=== PATIENT | female | born 1970 | race Caucasian/White ===

== ENCOUNTER 2016-10-12 09:02 | Inpatient (IN) | payer MEDICARE ==
[~2016-10-12] VITALS: Ht 167.6 cm; Wt 84.8 kg
[~2016-10-12 09:02] MED LIST: ALBU0.63 NEB; ALBU2.5V NEB; ALBU8.5H3 INH; AMBR10TA3 PO; BENZ100C4 PO; CEFD300C2 PO; CHOL400T2 PO; CLON0.5T PO; DOCU-30 PO; DOXY100T PO; DULO60CA7 PO; FERR325T20 PO; FLUT1DIS IH; FOLI-17 PO; FURO-93 PO; FURO40TA6 PO; GABA300C10 PO; GABA600T2 PO; HYDR10TA11 PO; LANS30CA PO; MORP1VIA2 IMPLANT; ONDA8TAB9 PO; PHEN60TA PO; PHEN64.8 PO; POTA10TA5 PO; POTA20TA91 PO; PRED10TA PO; Pain Pump IMPLANT; SENN1TAB7 PO; TADA20TA33 PO; TOPI200T25 PO
[2016-10-12] MEDS ORDERED: SODIUM CHLORIDE 0.9% 1,000ML IVBOLUS ONE ×2 (09:30→11:00)
[2016-10-12] MEDS ORDERED: VANCOMYCIN PER PHARMACY MC ONE (09:30)
[2016-10-12] MEDS ORDERED: methylPREDNISolone SOD SUCC 125 MG/2 ML IVPush ONE (09:30)
[2016-10-12] MEDS ORDERED: PIPERACILLIN/TAZO/PMX 3.375GM 50 ML IVPB ONE (09:30)
[2016-10-12] MEDS ORDERED: HYDROmorphone 1 MG/ML, 1ML ONE (09:39)
[2016-10-12] MEDS ORDERED: ONDANSETRON 2MG/ML, 2ML ONE (09:39)
[2016-10-12] MEDS ORDERED: HYDROmorphone 1 MG/ML, 1ML IVPush PRN (10:00)
[2016-10-12] MEDS ORDERED: VANCOMYCIN 1,400 MG in SODIUM CHLORIDE 0.9% 250 ML IV ONE (10:00)
[2016-10-12] MEDS ORDERED: ONDANSETRON 2MG/ML, 2ML IVPush ONE (10:00)
[2016-10-12] MEDS ORDERED: methylPREDNISolone SOD SUCC 125 MG/2 ML ONE (10:03)
[2016-10-12] MEDS ORDERED: PIPERACILLIN/TAZO/PMX 3.375GM 50 ML ONE (10:03)
[2016-10-12 10:13] LABS: ABG COLLECTION SITE RIGHT RADIAL; COLLATERAL CIRCULATION TESTING NORMAL
[2016-10-12 10:21] LABS: HEMOGLOBIN 14.2 g/dL (11.7-16.4)
[2016-10-12 10:26] LABS: ASPARTATE AMINO TRANSFERASE 78 U/L (15-37); BLOOD UREA NITROGEN 22 mg/dL (7-18)
[2016-10-12 10:31] LABS: IS PT STATUS REG ER OR PRE ER? YES
[2016-10-12 10:52] LABS: DIFF TOTAL CELLS COUNTED 100 CELL DIFF
[2016-10-12 10:53] LABS: VERIFY COUNTS? YES
[2016-10-12] MEDS ORDERED: LORazepam 2 MG/ML, 1ML IVPush ONE (11:00)
[2016-10-12] MEDS ORDERED: POTASSIUM CHLORIDE 40 MEQ in SODIUM CHLORIDE 0.9% 500 ML IV ONE (11:00)
[2016-10-12] MEDS ORDERED: POTASSIUM CHLORIDE 20 MEQ TAB.ER.PRT PO ONE (11:00)
[2016-10-12] MEDS ORDERED: LORazepam 2 MG/ML, 1ML ONE (11:34)
[2016-10-12] MEDS ORDERED: POLYETHYLENE GLYCOL 17 GM PACKET PO PRN (12:30)
[2016-10-12 12:49] VITALS: BP 111/65
[2016-10-12] MEDS: ENOXAPARIN 40 MG/0.4 ML SQ SCH (15:55)
[2016-10-12] MEDS ORDERED: VANCOMYCIN PER PHARMACY MC PRN (17:30)
[2016-10-12] MEDS ORDERED: PHARMACOKINETIC CONSULTATION MC ONE (18:00)
[2016-10-12] MEDS ORDERED: PHARMACOKINETIC MONITORING MC PRN (18:00)
[2016-10-12] MEDS: VANCOMYCIN 1,600 MG in SODIUM CHLORIDE 0.9% 250 ML IV SCH (18:03)
[2016-10-12] MEDS: PIPERACILLIN/TAZO/PMX 2.25GM 50 ML IV SCH (18:03)
[2016-10-12] MEDS: POTASSIUM CHLORIDE 20 MEQ TAB.ER.PRT PO SCH (18:03)
[2016-10-12] MEDS: MORPHINE SULFATE 4 MG/ML, 1ML IVPush PRN (19:09)
[2016-10-12] MEDS: ALBUTEROL SULFATE 2.5 MG/3 ML NPPB PRN (19:35)
[2016-10-12] MEDS: ONDANSETRON 2MG/ML, 2ML IVP PRN (20:34)
[2016-10-12] MEDS ORDERED: PHENOBARBITAL HOMEMEDPO SCH (21:00)
[2016-10-12] MEDS: DULOXETINE 30 MG CAPSULE.DR PO SCH (21:03)
[2016-10-12] MEDS: FUROSEMIDE 40 MG TABLET PO SCH (21:03)
[2016-10-12] MEDS: GABAPENTIN 400 MG CAPSULE PO SCH (21:04)
[2016-10-12] MEDS: TOPIRAMATE 100 MG TABLET PO SCH (21:04)
[2016-10-12] MEDS: SODIUM CHLORIDE FLUSH 10ML SYR IVF SCH (21:07)
[2016-10-12] MEDS: PHENOBARBITAL 30 MG TABLET PO SCH (21:40)
[2016-10-12] MEDS: PHENOBARBITAL 100 MG TABLET PO SCH (21:40)
[2016-10-13] MEDS: PIPERACILLIN/TAZO/PMX 2.25GM 50 ML IV SCH ×3 (01:39→18:02)
[2016-10-13] MEDS: OXYcodone IR 5MG TABLET PO PRN ×3 (02:13→16:48)
[2016-10-13] MEDS: ONDANSETRON 2MG/ML, 2ML IVP PRN ×2 (03:15→19:29)
[2016-10-13] MEDS: ACETAMINOPHEN 325 MG TABLET PO PRN ×2 (03:18→10:42)
[2016-10-13 04:41] LABS: HEMOGLOBIN 11.4 g/dL (11.7-16.4)
[2016-10-13 04:52] LABS: BLOOD UREA NITROGEN 21 mg/dL (7-18)
[2016-10-13 04:55] LABS: ASPARTATE AMINO TRANSFERASE 42 U/L (15-37)
[2016-10-13] MEDS: GABAPENTIN 300 MG CAPSULE PO SCH (05:28)
[2016-10-13] MEDS: AMBRISENTAN 10 MG HOMEMEDPO SCH (09:00)
[2016-10-13] MEDS ORDERED: FLUTICASONE/VILANTEROL 100-25MCG/INH INH SCH (09:00)
[2016-10-13] MEDS: Tadalafil** (Adcirca**) 40 MG) HOMEMEDPO SCH (09:00)
[2016-10-13] MEDS ORDERED: POTASSIUM CHLORIDE 20 MEQ TAB.ER.PRT PO ONE (09:00)
[2016-10-13] MEDS: POTASSIUM CHLORIDE 20 MEQ TAB.ER.PRT PO SCH ×2 (09:57→16:48)
[2016-10-13] MEDS: FLUTICASONE/VILANTEROL 100-25MCG/INH INH SCH (09:58)
[2016-10-13] MEDS: DULOXETINE 30 MG CAPSULE.DR PO SCH ×2 (10:00→20:52)
[2016-10-13] MEDS: SODIUM CHLORIDE FLUSH 10ML SYR IVF SCH ×2 (10:00→20:49)
[2016-10-13] MEDS: CHOLECALCIFEROL 400 UNITS TABLET PO SCH (10:01)
[2016-10-13] MEDS: PANTOPROZOLE 40MG TABLET PO SCH (10:01)
[2016-10-13] MEDS: TOPIRAMATE 100 MG TABLET PO SCH ×2 (10:09→20:51)
[2016-10-13] MEDS: FUROSEMIDE 40 MG TABLET PO SCH ×2 (10:09→21:00)
[2016-10-13] MEDS: FOLIC ACID 1 MG TABLET PO SCH (10:09)
[2016-10-13] MEDS: FERROUS SULFATE 325 MG TABLET PO SCH (10:10)
[2016-10-13] MEDS: SENNA/DOCUSATE TABLET PO SCH (10:11)
[2016-10-13] MEDS: VANCOMYCIN 1,600 MG in SODIUM CHLORIDE 0.9% 250 ML IV SCH (13:41)
[2016-10-13] MEDS: ENOXAPARIN 40 MG/0.4 ML SQ SCH (13:41)
[2016-10-13] MEDS: MORPHINE SULFATE 4 MG/ML, 1ML IVPush PRN (18:02)
[2016-10-13] MEDS: PHENOBARBITAL 100 MG TABLET PO SCH (20:49)
[2016-10-13] MEDS: PHENOBARBITAL 30 MG TABLET PO SCH (20:50)
[2016-10-13] MEDS: GABAPENTIN 400 MG CAPSULE PO SCH (20:52)
[2016-10-13 22:19] VITALS: BP 116/73
[2016-10-14] MEDS: OXYcodone IR 5MG TABLET PO PRN ×4 (00:22→20:07)
[2016-10-14] MEDS: PIPERACILLIN/TAZO/PMX 2.25GM 50 ML IV SCH ×3 (01:44→17:48)
[2016-10-14 02:56] VITALS: BP 101/55
[2016-10-14 04:57] LABS: HEMOGLOBIN 11.4 g/dL (11.7-16.4)
[2016-10-14 05:13] LABS: ASPARTATE AMINO TRANSFERASE 24 U/L (15-37); BLOOD UREA NITROGEN 14 mg/dL (7-18)
[2016-10-14] MEDS: GABAPENTIN 300 MG CAPSULE PO SCH (05:58)
[2016-10-14] MEDS: VANCOMYCIN 1,600 MG in SODIUM CHLORIDE 0.9% 250 ML IV SCH (05:59)
[2016-10-14 07:30] VITALS: BP 100/62
[2016-10-14] MEDS: Tadalafil** (Adcirca**) 40 MG) HOMEMEDPO SCH ×2 (09:00→20:14)
[2016-10-14] MEDS: AMBRISENTAN 10 MG HOMEMEDPO SCH (09:00)
[2016-10-14] MEDS: SODIUM CHLORIDE FLUSH 10ML SYR IVF SCH ×2 (09:00→20:06)
[2016-10-14] MEDS: SENNA/DOCUSATE TABLET PO SCH (10:01)
[2016-10-14] MEDS: FUROSEMIDE 40 MG TABLET PO SCH ×2 (10:01→20:19)
[2016-10-14] MEDS: ACETAMINOPHEN 325 MG TABLET PO PRN ×2 (10:01→20:07)
[2016-10-14] MEDS: POTASSIUM CHLORIDE 20 MEQ TAB.ER.PRT PO SCH (10:41)
[2016-10-14] MEDS: PANTOPROZOLE 40MG TABLET PO SCH (10:41)
[2016-10-14] MEDS: DULOXETINE 30 MG CAPSULE.DR PO SCH ×2 (10:43→20:09)
[2016-10-14] MEDS: FLUTICASONE/VILANTEROL 100-25MCG/INH INH SCH (10:43)
[2016-10-14] MEDS: FOLIC ACID 1 MG TABLET PO SCH (10:44)
[2016-10-14] MEDS: FERROUS SULFATE 325 MG TABLET PO SCH (10:44)
[2016-10-14] MEDS: TOPIRAMATE 100 MG TABLET PO SCH ×2 (10:44→20:11)
[2016-10-14] MEDS: CHOLECALCIFEROL 400 UNITS TABLET PO SCH (10:45)
[2016-10-14 12:58] VITALS: BP 96/59
[2016-10-14] MEDS: ENOXAPARIN 40 MG/0.4 ML SQ SCH (13:28)
[2016-10-14] MEDS ORDERED: METO5TAB5 PO (17:58)
[2016-10-14 19:22] VITALS: BP 120/74
[2016-10-14] MEDS: BENZONATATE 100 MG CAPSULE PO PRN (20:08)
[2016-10-14] MEDS: GABAPENTIN 400 MG CAPSULE PO SCH (20:10)
[2016-10-14] MEDS: PHENOBARBITAL 100 MG TABLET PO SCH (20:10)
[2016-10-14] MEDS: PHENOBARBITAL 30 MG TABLET PO SCH (20:11)
[2016-10-15] MEDS: VANCOMYCIN 1,600 MG in SODIUM CHLORIDE 0.9% 250 ML IV SCH (00:41)
[2016-10-15] MEDS: OXYcodone IR 5MG TABLET PO PRN ×3 (01:11→22:23)
[2016-10-15] MEDS: PIPERACILLIN/TAZO/PMX 2.25GM 50 ML IV SCH ×2 (01:13→09:55)
[2016-10-15 01:20] VITALS: BP 95/52
[2016-10-15] MEDS: ACETAMINOPHEN 325 MG TABLET PO PRN ×2 (03:56→14:14)
[2016-10-15] MEDS: GABAPENTIN 300 MG CAPSULE PO SCH (05:53)
[2016-10-15 06:21] LABS: HEMOGLOBIN 11.5 g/dL (11.7-16.4)
[2016-10-15 06:30] LABS: BLOOD UREA NITROGEN 13 mg/dL (7-18); TOTAL IRON BINDING CAPACITY 196 mcg/dL (250-450)
[2016-10-15 07:31] VITALS: BP 105/55
[2016-10-15] MEDS: FUROSEMIDE 40 MG TABLET PO SCH ×2 (09:00→16:32)
[2016-10-15] MEDS: SODIUM CHLORIDE FLUSH 10ML SYR IVF SCH ×2 (09:00→20:44)
[2016-10-15] MEDS: PANTOPROZOLE 40MG TABLET PO SCH (09:51)
[2016-10-15] MEDS: FLUTICASONE/VILANTEROL 100-25MCG/INH INH SCH (09:52)
[2016-10-15] MEDS: TOPIRAMATE 100 MG TABLET PO SCH ×2 (09:54→20:44)
[2016-10-15] MEDS: CHOLECALCIFEROL 400 UNITS TABLET PO SCH (09:54)
[2016-10-15] MEDS: DULOXETINE 30 MG CAPSULE.DR PO SCH ×2 (09:54→20:45)
[2016-10-15] MEDS: FERROUS SULFATE 325 MG TABLET PO SCH (09:54)
[2016-10-15] MEDS: FOLIC ACID 1 MG TABLET PO SCH (09:54)
[2016-10-15] MEDS: SENNA/DOCUSATE TABLET PO SCH (09:54)
[2016-10-15] MEDS: GUAIFENESIN 200 MG TABLET PO SCH ×3 (12:00→20:45)
[2016-10-15] MEDS: ALBUTEROL SULFATE 2.5 MG/3 ML NPPB PRN (13:15)
[2016-10-15] MEDS: Tadalafil** (Adcirca**) 40 MG) HOMEMEDPO SCH (13:30)
[2016-10-15] MEDS: AMBRISENTAN 10 MG HOMEMEDPO SCH (13:30)
[2016-10-15 13:35] VITALS: BP 93/60
[2016-10-15] MEDS: CEFDINIR 300 MG CAPSULE PO SCH ×2 (13:39→20:44)
[2016-10-15] MEDS ORDERED: OXYcodone IR 5MG TABLET PO PRN (16:30)
[2016-10-15] MEDS: ENOXAPARIN 40 MG/0.4 ML SQ SCH (16:33)
[2016-10-15 18:30] VITALS: BP 104/63
[2016-10-15] MEDS: PHENOBARBITAL 30 MG TABLET PO SCH (20:44)
[2016-10-15] MEDS: GABAPENTIN 400 MG CAPSULE PO SCH (20:44)
[2016-10-15] MEDS: PHENOBARBITAL 100 MG TABLET PO SCH (20:45)
[2016-10-16] MEDS: ALBUTEROL SULFATE 2.5 MG/3 ML NPPB SCH ×4 (00:01→19:02)
[2016-10-16 01:55] VITALS: BP 94/56
[2016-10-16] MEDS: OXYcodone IR 5MG TABLET PO PRN ×4 (04:03→20:48)
[2016-10-16 05:36] LABS: HEMOGLOBIN 10.7 g/dL (11.7-16.4)
[2016-10-16] MEDS: GUAIFENESIN 200 MG TABLET PO SCH ×4 (05:43→20:43)
[2016-10-16 06:06] LABS: BLOOD UREA NITROGEN 13 mg/dL (7-18)
[2016-10-16 07:30] VITALS: BP 91/50
[2016-10-16] MEDS: CEFDINIR 300 MG CAPSULE PO SCH ×2 (08:21→20:42)
[2016-10-16] MEDS: DULOXETINE 30 MG CAPSULE.DR PO SCH ×2 (08:22→20:41)
[2016-10-16] MEDS: FERROUS SULFATE 325 MG TABLET PO SCH (08:22)
[2016-10-16] MEDS: TOPIRAMATE 100 MG TABLET PO SCH ×2 (08:22→20:42)
[2016-10-16] MEDS: CHOLECALCIFEROL 400 UNITS TABLET PO SCH (08:22)
[2016-10-16] MEDS: FOLIC ACID 1 MG TABLET PO SCH (08:22)
[2016-10-16] MEDS: PANTOPROZOLE 40MG TABLET PO SCH (08:22)
[2016-10-16] MEDS: FLUTICASONE/VILANTEROL 100-25MCG/INH INH SCH (08:23)
[2016-10-16] MEDS: SODIUM CHLORIDE FLUSH 10ML SYR IVF SCH ×2 (08:23→20:52)
[2016-10-16] MEDS: AMBRISENTAN 10 MG HOMEMEDPO SCH (08:24)
[2016-10-16] MEDS: FUROSEMIDE 40 MG TABLET PO SCH ×2 (08:25→20:42)
[2016-10-16] MEDS: SENNA/DOCUSATE TABLET PO SCH (08:27)
[2016-10-16] MEDS: ACETAMINOPHEN 325 MG TABLET PO PRN (09:56)
[2016-10-16 13:51] VITALS: BP 83/46
[2016-10-16] MEDS: ENOXAPARIN 40 MG/0.4 ML SQ SCH (16:21)
[2016-10-16 18:30] VITALS: BP 110/68
[2016-10-16] MEDS: GABAPENTIN 400 MG CAPSULE PO SCH (20:41)
[2016-10-16] MEDS: PHENOBARBITAL 100 MG TABLET PO SCH (20:42)
[2016-10-16] MEDS: PHENOBARBITAL 30 MG TABLET PO SCH (20:42)
[2016-10-17 01:29] VITALS: BP 94/54
[2016-10-17] MEDS: OXYcodone IR 5MG TABLET PO PRN ×5 (01:30→21:09)
[2016-10-17 05:22] LABS: HEMOGLOBIN 10.8 g/dL (11.7-16.4)
[2016-10-17 05:35] LABS: BLOOD UREA NITROGEN 10 mg/dL (7-18)
[2016-10-17] MEDS: GUAIFENESIN 200 MG TABLET PO SCH ×4 (05:41→20:57)
[2016-10-17] MEDS: ALBUTEROL SULFATE 2.5 MG/3 ML NPPB SCH ×4 (07:45→21:45)
[2016-10-17 08:16] VITALS: BP 93/55
[2016-10-17] MEDS: FLUTICASONE/VILANTEROL 100-25MCG/INH INH SCH (08:26)
[2016-10-17] MEDS: DULOXETINE 30 MG CAPSULE.DR PO SCH ×2 (08:27→20:54)
[2016-10-17] MEDS: AMBRISENTAN 10 MG HOMEMEDPO SCH (08:27)
[2016-10-17] MEDS: SODIUM CHLORIDE FLUSH 10ML SYR IVF SCH ×2 (08:27→20:54)
[2016-10-17] MEDS: FUROSEMIDE 40 MG TABLET PO SCH ×2 (08:27→20:55)
[2016-10-17] MEDS: TEMPLATE NON-FORMULARY MED. (Tadalafil** (Adcirca**) 40 MG) HOMEMEDPO SCH (08:29)
[2016-10-17] MEDS: SENNA/DOCUSATE TABLET PO SCH (08:30)
[2016-10-17] MEDS: FERROUS SULFATE 325 MG TABLET PO SCH (08:30)
[2016-10-17] MEDS: PANTOPROZOLE 40MG TABLET PO SCH (08:31)
[2016-10-17] MEDS: CHOLECALCIFEROL 400 UNITS TABLET PO SCH (08:31)
[2016-10-17] MEDS: FOLIC ACID 1 MG TABLET PO SCH (08:31)
[2016-10-17] MEDS: CEFDINIR 300 MG CAPSULE PO SCH ×2 (08:32→20:55)
[2016-10-17] MEDS: TOPIRAMATE 100 MG TABLET PO SCH ×2 (08:32→20:54)
[2016-10-17 13:39] VITALS: BP 92/51
[2016-10-17] MEDS: ENOXAPARIN 40 MG/0.4 ML SQ SCH (16:48)
[2016-10-17 18:53] VITALS: BP 98/55
[2016-10-17] MEDS: PHENOBARBITAL 30 MG TABLET PO SCH (20:54)
[2016-10-17] MEDS: GABAPENTIN 400 MG CAPSULE PO SCH (20:54)
[2016-10-17] MEDS: PHENOBARBITAL 100 MG TABLET PO SCH (20:54)
[2016-10-17] MEDS: ONDANSETRON 2MG/ML, 2ML IVP PRN (21:46)
[2016-10-18] MEDS: OXYcodone IR 5MG TABLET PO PRN ×5 (02:13→20:37)
[2016-10-18 02:32] VITALS: BP 93/59
[2016-10-18] MEDS: ALBUTEROL SULFATE 2.5 MG/3 ML NPPB PRN (03:20)
[2016-10-18 05:19] LABS: HEMOGLOBIN 10.3 g/dL (11.7-16.4)
[2016-10-18 05:36] LABS: BLOOD UREA NITROGEN 13 mg/dL (7-18)
[2016-10-18] MEDS: GUAIFENESIN 200 MG TABLET PO SCH ×4 (06:24→21:00)
[2016-10-18] MEDS: BENZONATATE 100 MG CAPSULE PO PRN (06:25)
[2016-10-18] MEDS: ALBUTEROL SULFATE 2.5 MG/3 ML NPPB SCH ×4 (07:15→20:40)
[2016-10-18 07:54] VITALS: BP 92/56
[2016-10-18] MEDS: SENNA/DOCUSATE TABLET PO SCH (09:00)
[2016-10-18] MEDS: AMBRISENTAN 10 MG HOMEMEDPO SCH (09:00)
[2016-10-18] MEDS: TEMPLATE NON-FORMULARY MED. (Tadalafil** (Adcirca**) 40 MG) HOMEMEDPO SCH (09:00)
[2016-10-18] MEDS: CHOLECALCIFEROL 400 UNITS TABLET PO SCH (09:06)
[2016-10-18] MEDS: TOPIRAMATE 100 MG TABLET PO SCH ×2 (09:06→22:28)
[2016-10-18] MEDS: FUROSEMIDE 40 MG TABLET PO SCH ×2 (09:06→22:28)
[2016-10-18] MEDS: FLUTICASONE/VILANTEROL 100-25MCG/INH INH SCH (09:06)
[2016-10-18] MEDS: PANTOPROZOLE 40MG TABLET PO SCH (09:06)
[2016-10-18] MEDS: CEFDINIR 300 MG CAPSULE PO SCH ×2 (09:06→22:28)
[2016-10-18] MEDS: FERROUS SULFATE 325 MG TABLET PO SCH (09:07)
[2016-10-18] MEDS: SODIUM CHLORIDE FLUSH 10ML SYR IVF SCH ×2 (09:07→21:00)
[2016-10-18] MEDS: FOLIC ACID 1 MG TABLET PO SCH (09:07)
[2016-10-18] MEDS: DULOXETINE 30 MG CAPSULE.DR PO SCH ×2 (09:07→22:27)
[2016-10-18 13:54] VITALS: BP 95/58
[2016-10-18] MEDS: ENOXAPARIN 40 MG/0.4 ML SQ SCH (16:30)
[2016-10-18] MEDS ORDERED: POTASSIUM CHLORIDE 20 MEQ TAB.ER.PRT PO ONE (16:30)
[2016-10-18 19:25] VITALS: BP 94/64
[2016-10-18] MEDS: ONDANSETRON 2MG/ML, 2ML IVP PRN (22:21)
[2016-10-18] MEDS: PHENOBARBITAL 100 MG TABLET PO SCH (22:26)
[2016-10-18] MEDS: PHENOBARBITAL 30 MG TABLET PO SCH (22:27)
[2016-10-18] MEDS: GABAPENTIN 400 MG CAPSULE PO SCH (22:27)
[2016-10-19] MEDS: OXYcodone IR 5MG TABLET PO PRN ×5 (00:23→20:21)
[2016-10-19 03:47] VITALS: BP 97/62
[2016-10-19] MEDS: ONDANSETRON 2MG/ML, 2ML IVP PRN ×3 (04:43→20:35)
[2016-10-19 06:09] LABS: BLOOD UREA NITROGEN 12 mg/dL (7-18)
[2016-10-19] MEDS: ALBUTEROL SULFATE 2.5 MG/3 ML NPPB SCH ×4 (07:10→20:00)
[2016-10-19] MEDS: PANTOPROZOLE 40MG TABLET PO SCH (08:46)
[2016-10-19] MEDS: FUROSEMIDE 40 MG TABLET PO SCH ×2 (08:47→17:16)
[2016-10-19] MEDS: FOLIC ACID 1 MG TABLET PO SCH (08:47)
[2016-10-19] MEDS: CEFDINIR 300 MG CAPSULE PO SCH ×2 (08:47→20:21)
[2016-10-19] MEDS: FERROUS SULFATE 325 MG TABLET PO SCH (08:47)
[2016-10-19] MEDS: GUAIFENESIN 200 MG TABLET PO SCH ×4 (08:47→20:19)
[2016-10-19] MEDS: TOPIRAMATE 100 MG TABLET PO SCH ×2 (08:47→20:20)
[2016-10-19] MEDS: DULOXETINE 30 MG CAPSULE.DR PO SCH ×2 (08:47→20:20)
[2016-10-19] MEDS: CHOLECALCIFEROL 400 UNITS TABLET PO SCH (08:47)
[2016-10-19] MEDS: SENNA/DOCUSATE TABLET PO SCH (08:48)
[2016-10-19] MEDS: FLUTICASONE/VILANTEROL 100-25MCG/INH INH SCH (08:49)
[2016-10-19] MEDS: SODIUM CHLORIDE FLUSH 10ML SYR IVF SCH ×2 (08:54→20:22)
[2016-10-19] MEDS: TEMPLATE NON-FORMULARY MED. (Tadalafil** (Adcirca**) 40 MG) HOMEMEDPO SCH (08:54)
[2016-10-19] MEDS: AMBRISENTAN 10 MG HOMEMEDPO SCH (08:54)
[2016-10-19 08:55] VITALS: BP 93/56
[2016-10-19] MEDS: BENZONATATE 100 MG CAPSULE PO PRN (11:46)
[2016-10-19 15:05] VITALS: BP 108/71
[2016-10-19] MEDS: ACETAMINOPHEN 325 MG TABLET PO PRN (17:11)
[2016-10-19] MEDS: ENOXAPARIN 40 MG/0.4 ML SQ SCH (17:16)
[2016-10-19 20:09] VITALS: BP 104/61
[2016-10-19] MEDS: LORazepam 2 MG/ML, 1ML IVPush PRN (20:19)
[2016-10-19] MEDS: GABAPENTIN 400 MG CAPSULE PO SCH (20:20)
[2016-10-19] MEDS: PHENOBARBITAL 100 MG TABLET PO SCH (20:21)
[2016-10-19] MEDS: PHENOBARBITAL 30 MG TABLET PO SCH (20:21)
[2016-10-20] MEDS: BENZONATATE 100 MG CAPSULE PO PRN ×2 (01:30→21:36)
[2016-10-20] MEDS: OXYcodone IR 5MG TABLET PO PRN ×2 (01:30→08:17)
[2016-10-20] MEDS: LORazepam 2 MG/ML, 1ML IVPush PRN (01:31)
[2016-10-20 01:44] VITALS: BP 96/56
[2016-10-20] MEDS: ALBUTEROL SULFATE 2.5 MG/3 ML NPPB SCH ×5 (07:00→22:20)
[2016-10-20 07:38] VITALS: BP 93/55
[2016-10-20] MEDS: FERROUS SULFATE 325 MG TABLET PO SCH (08:15)
[2016-10-20] MEDS: CHOLECALCIFEROL 400 UNITS TABLET PO SCH (08:15)
[2016-10-20] MEDS: FOLIC ACID 1 MG TABLET PO SCH (08:15)
[2016-10-20] MEDS: DULOXETINE 30 MG CAPSULE.DR PO SCH ×2 (08:15→21:33)
[2016-10-20] MEDS: FUROSEMIDE 40 MG TABLET PO SCH ×2 (08:16→16:23)
[2016-10-20] MEDS: TOPIRAMATE 100 MG TABLET PO SCH ×2 (08:16→21:34)
[2016-10-20] MEDS: PANTOPROZOLE 40MG TABLET PO SCH (08:16)
[2016-10-20] MEDS: CEFDINIR 300 MG CAPSULE PO SCH ×2 (08:16→21:34)
[2016-10-20] MEDS: FLUTICASONE/VILANTEROL 100-25MCG/INH INH SCH (08:17)
[2016-10-20] MEDS: GUAIFENESIN 200 MG TABLET PO SCH ×4 (08:17→21:35)
[2016-10-20] MEDS: SENNA/DOCUSATE TABLET PO SCH (08:17)
[2016-10-20] MEDS: AMBRISENTAN 10 MG HOMEMEDPO SCH (08:20)
[2016-10-20] MEDS: TEMPLATE NON-FORMULARY MED. (Tadalafil** (Adcirca**) 40 MG) HOMEMEDPO SCH (08:20)
[2016-10-20] MEDS: SODIUM CHLORIDE FLUSH 10ML SYR IVF SCH ×2 (08:59→21:37)
[2016-10-20 14:20] VITALS: BP 95/62
[2016-10-20] MEDS: ACETAMINOPHEN 325 MG TABLET PO PRN (16:22)
[2016-10-20] MEDS: ENOXAPARIN 40 MG/0.4 ML SQ SCH (16:23)
[2016-10-20 20:00] VITALS: BP 98/60
[2016-10-20] MEDS: PHENOBARBITAL 100 MG TABLET PO SCH (21:32)
[2016-10-20] MEDS: PHENOBARBITAL 30 MG TABLET PO SCH (21:33)
[2016-10-20] MEDS: GABAPENTIN 400 MG CAPSULE PO SCH (21:37)
[2016-10-20] MEDS: ONDANSETRON 2MG/ML, 2ML IVP PRN (21:37)
[2016-10-21] MEDS: ACETAMINOPHEN 325 MG TABLET PO PRN (01:32)
[2016-10-21 01:45] VITALS: BP 92/60
[2016-10-21] MEDS: GUAIFENESIN 200 MG TABLET PO SCH ×4 (06:00→21:00)
[2016-10-21] MEDS: ALBUTEROL SULFATE 2.5 MG/3 ML NPPB SCH ×4 (07:40→20:02)
[2016-10-21 08:28] VITALS: BP 87/52
[2016-10-21] MEDS: PANTOPROZOLE 40MG TABLET PO SCH (08:48)
[2016-10-21] MEDS: FLUTICASONE/VILANTEROL 100-25MCG/INH INH SCH (08:48)
[2016-10-21] MEDS: SODIUM CHLORIDE FLUSH 10ML SYR IVF SCH ×2 (08:49→21:32)
[2016-10-21] MEDS: DULOXETINE 30 MG CAPSULE.DR PO SCH ×2 (08:51→21:34)
[2016-10-21] MEDS: CEFDINIR 300 MG CAPSULE PO SCH ×2 (08:52→21:36)
[2016-10-21] MEDS: FUROSEMIDE 40 MG TABLET PO SCH ×2 (08:52→17:08)
[2016-10-21] MEDS: SENNA/DOCUSATE TABLET PO SCH (08:53)
[2016-10-21] MEDS: FOLIC ACID 1 MG TABLET PO SCH (08:53)
[2016-10-21] MEDS: TOPIRAMATE 100 MG TABLET PO SCH ×2 (08:53→21:37)
[2016-10-21] MEDS: CHOLECALCIFEROL 400 UNITS TABLET PO SCH (08:54)
[2016-10-21] MEDS: AMBRISENTAN 10 MG HOMEMEDPO SCH (08:58)
[2016-10-21] MEDS: TEMPLATE NON-FORMULARY MED. (Tadalafil** (Adcirca**) 40 MG) HOMEMEDPO SCH (08:58)
[2016-10-21 09:16] VITALS: BP 88/57
[2016-10-21] MEDS: FERROUS SULFATE 325 MG TABLET PO SCH (10:13)
[2016-10-21] MEDS ORDERED: CEFD300C2 PO (11:46)
[2016-10-21] MEDS ORDERED: PANT40TA5 PO (11:46)
[2016-10-21] MEDS ORDERED: TADALAFIL HOMEMEDPO (11:46)
[2016-10-21] MEDS ORDERED: TOPI100T24 PO (11:48)
[2016-10-21 13:06] VITALS: BP 97/62
[2016-10-21] MEDS: ENOXAPARIN 40 MG/0.4 ML SQ SCH (16:49)
[2016-10-21] MEDS: ONDANSETRON 2MG/ML, 2ML IVP PRN (21:32)
[2016-10-21] MEDS: PHENOBARBITAL 30 MG TABLET PO SCH (21:36)
[2016-10-21] MEDS: GABAPENTIN 400 MG CAPSULE PO SCH (21:36)
[2016-10-21] MEDS: PHENOBARBITAL 100 MG TABLET PO SCH (21:37)
[2016-10-22 01:49] VITALS: BP 94/58
[2016-10-22] MEDS: GUAIFENESIN 200 MG TABLET PO SCH ×3 (05:57→16:43)
[2016-10-22 08:00] VITALS: BP 97/64
[2016-10-22] MEDS: ALBUTEROL SULFATE 2.5 MG/3 ML NPPB SCH ×3 (08:10→15:55)
[2016-10-22] MEDS: FOLIC ACID 1 MG TABLET PO SCH (08:29)
[2016-10-22] MEDS: TOPIRAMATE 100 MG TABLET PO SCH (08:29)
[2016-10-22] MEDS: FERROUS SULFATE 325 MG TABLET PO SCH (08:29)
[2016-10-22] MEDS: FUROSEMIDE 40 MG TABLET PO SCH ×2 (08:30→16:43)
[2016-10-22] MEDS: DULOXETINE 30 MG CAPSULE.DR PO SCH (08:30)
[2016-10-22] MEDS: CEFDINIR 300 MG CAPSULE PO SCH ×2 (08:30→19:18)
[2016-10-22] MEDS: PANTOPROZOLE 40MG TABLET PO SCH (08:30)
[2016-10-22] MEDS: CHOLECALCIFEROL 400 UNITS TABLET PO SCH (08:45)
[2016-10-22] MEDS: SENNA/DOCUSATE TABLET PO SCH (08:46)
[2016-10-22] MEDS: FLUTICASONE/VILANTEROL 100-25MCG/INH INH SCH (09:00)
[2016-10-22] MEDS: SODIUM CHLORIDE FLUSH 10ML SYR IVF SCH (09:00)
[2016-10-22] MEDS: TEMPLATE NON-FORMULARY MED. (Tadalafil** (Adcirca**) 40 MG) HOMEMEDPO SCH (09:01)
[2016-10-22] MEDS: AMBRISENTAN 10 MG HOMEMEDPO SCH (09:01)
[2016-10-22] MEDS ORDERED: METO5TAB5 PO (09:25)
[2016-10-22] MEDS ORDERED: METOLAZONE 5 MG TABLET PO SCH ×2 (09:30→14:30)
[2016-10-22 13:04] VITALS: BP 99/61
[2016-10-22] MEDS: ENOXAPARIN 40 MG/0.4 ML SQ SCH (17:00)
[2016-10-24] MEDS ORDERED: METOLAZONE 5 MG TABLET PO SCH (09:00)
== END 2016-10-22 20:00 | disposition home health service (06) | DRG 871 ==
LOC: ED 10:48 → EDIP 10:53 → CCU 12:00 → 3NE 10-13 22:46
PROVIDERS: ADMIT Internal Medicine; ATTEND Internal Medicine
PROC: 5A09357 Assistance with Respiratory Ventilation, Less than 24 Consecutive Hours, Continuous Positive Airway Pressure (ICD-10-PCS; principal; 2016-10-12)
DX: A41.9 Sepsis, unspecified organism (principal); J96.21 Acute and chronic respiratory failure with hypoxia; J18.9 Pneumonia, unspecified organism; M34.81 Systemic sclerosis with lung involvement; J44.0 Chronic obstructive pulmonary disease with (acute) lower respiratory infection; R65.20 Severe sepsis without septic shock; G40.909 Epilepsy, unspecified, not intractable, without status epilepticus; M34.1 CR(E)ST syndrome; I27.2 Other secondary pulmonary hypertension; E87.6 Hypokalemia; D63.8 Anemia in other chronic diseases classified elsewhere; I50.9 Heart failure, unspecified; G89.4 Chronic pain syndrome; Z87.891 Personal history of nicotine dependence; Z82.49 Family history of ischemic heart disease and other diseases of the circulatory system; I95.9 Hypotension, unspecified; Z91.19 Patient's noncompliance with other medical treatment and regimen; R13.10 Dysphagia, unspecified
CPT/HCPCS: 36415; 36600; 71010; 80048; 80053; 82803; 83540; 83550; 83605; 83735; 83880; 84145; 84484; 85025; 85610; 85651; 85730; 87040; 87070; 87081; 87205; 93005; 93306; 94640; 94660; 96361; 96365; 96375; J1170; J1650; J2405; J2543; J3370; J3480; J7613; J2060; J2930; J7030; J7040; J7050

== ENCOUNTER 2016-10-22 21:50 | Inpatient (IN) | payer MEDICARE ==
[~2016-10-22] VITALS: Ht 167.6 cm; Wt 80.9 kg
[~2016-10-22 21:50] MED LIST changes: +METO5TAB5 PO; +PANT40TA5 PO; +TADALAFIL HOMEMEDPO; +TOPI100T24 PO
[2016-10-22] MEDS ORDERED: SODIUM CHLORIDE FLUSH 10ML SYR IVF ONE (22:30)
[2016-10-22 23:00] LABS: BLOOD UREA NITROGEN 12 mg/dL (7-18)
[2016-10-22] MEDS ORDERED: ONDANSETRON 2MG/ML, 2ML ONE (23:22)
[2016-10-23] MEDS ORDERED: POTASSIUM CHLORIDE 20 MEQ TAB.ER.PRT PO ONE (01:00)
[2016-10-23] MEDS ORDERED: FUROSEMIDE 40 MG/4 ML IV ONE (01:00)
[2016-10-23 01:36] LABS: IS PT STATUS REG ER OR PRE ER? NO
[2016-10-23 02:08] VITALS: BP 105/68
[2016-10-23] MEDS: ALBUTEROL SULFATE 2.5 MG/3 ML NPPB PRN (02:24)
[2016-10-23] MEDS: HEPARIN 5,000 UNITS/ML, 1ML SQ SCH ×3 (03:49→17:33)
[2016-10-23] MEDS: LACTOBACILLUS 1GM/ PACKET PO SCH ×5 (03:50→23:43)
[2016-10-23] MEDS: OXYcodone IR 5MG TABLET PO PRN ×3 (03:50→13:24)
[2016-10-23] MEDS: CEFDINIR 300 MG CAPSULE PO SCH ×2 (03:50→08:16)
[2016-10-23] MEDS: ALBUTEROL SULFATE 2.5 MG/3 ML NPPB SCH ×4 (06:42→20:00)
[2016-10-23 07:10] VITALS: BP 94/59
[2016-10-23 07:37] LABS: IS PT STATUS REG ER OR PRE ER? NO
[2016-10-23] MEDS: TOPIRAMATE 100 MG TABLET PO SCH (08:11)
[2016-10-23] MEDS: CHOLECALCIFEROL 400 UNITS TABLET PO SCH (08:11)
[2016-10-23] MEDS: FUROSEMIDE 40 MG TABLET PO SCH ×2 (08:12→21:00)
[2016-10-23] MEDS: FERROUS SULFATE 325 MG TABLET PO SCH (08:12)
[2016-10-23] MEDS: DULOXETINE 30 MG CAPSULE.DR PO SCH (08:13)
[2016-10-23] MEDS: TEMPLATE NON-FORMULARY MED. (Ambrisentan (Letairis**) 10 MG) HOMEMEDPO SCH (08:14)
[2016-10-23] MEDS ORDERED: METOLAZONE 5 MG TABLET PO SCH (09:00)
[2016-10-23] MEDS ORDERED: CEFDINIR 300 MG CAPSULE PO SCH (09:00)
[2016-10-23 13:25] VITALS: BP 98/66
[2016-10-23 13:55] VITALS: BP 104/70
[2016-10-23] MEDS ORDERED: PHENOBARBITAL MC SCH (17:30)
[2016-10-23] MEDS: ONDANSETRON 4 MG TABLET PO PRN ×2 (17:36→23:43)
[2016-10-23 19:11] VITALS: BP 101/66
[2016-10-23] MEDS ORDERED: PHENOBARBITAL PO SCH ×2 (21:00)
[2016-10-23] MEDS: PHENOBARBITAL 100 MG TABLET PO SCH (21:00)
[2016-10-23] MEDS: PHENOBARBITAL 30 MG TABLET PO SCH (23:43)
[2016-10-24] MEDS: DULOXETINE 30 MG CAPSULE.DR PO SCH ×3 (00:32→21:41)
[2016-10-24] MEDS: GABAPENTIN 400 MG CAPSULE PO SCH ×4 (00:33→23:16)
[2016-10-24] MEDS: OXYcodone IR 5MG TABLET PO PRN ×5 (00:40→23:15)
[2016-10-24] MEDS: TOPIRAMATE 100 MG TABLET PO SCH ×3 (00:40→23:18)
[2016-10-24] MEDS: CEFDINIR 300 MG CAPSULE PO SCH ×3 (00:40→23:18)
[2016-10-24 00:46] VITALS: BP 101/67
[2016-10-24] MEDS: HEPARIN 5,000 UNITS/ML, 1ML SQ SCH ×4 (01:00→21:47)
[2016-10-24] MEDS: LACTOBACILLUS 1GM/ PACKET PO SCH ×4 (06:00→21:42)
[2016-10-24] MEDS: ALBUTEROL SULFATE 2.5 MG/3 ML NPPB SCH ×4 (07:00→19:49)
[2016-10-24 07:16] VITALS: BP 95/62
[2016-10-24] MEDS ORDERED: POTASSIUM CHLORIDE 10% 40 MEQ/30 ML UDC PO ONE (08:30)
[2016-10-24] MEDS: ONDANSETRON 4 MG TABLET PO PRN ×3 (10:17→23:15)
[2016-10-24] MEDS: METOLAZONE 5 MG TABLET PO SCH (10:59)
[2016-10-24] MEDS: CHOLECALCIFEROL 400 UNITS TABLET PO SCH (11:00)
[2016-10-24] MEDS: FERROUS SULFATE 325 MG TABLET PO SCH (11:01)
[2016-10-24] MEDS: FUROSEMIDE 40 MG TABLET PO SCH ×2 (11:03→21:00)
[2016-10-24] MEDS ORDERED: POTASSIUM CHLORIDE 20 MEQ TAB.ER.PRT PO ONE (12:00)
[2016-10-24] MEDS: TADALAFIL 40 MG PO SCH (12:49)
[2016-10-24] MEDS: TEMPLATE NON-FORMULARY MED. (Ambrisentan (Letairis**) 10 MG) HOMEMEDPO SCH (12:49)
[2016-10-24 13:59] VITALS: BP 104/72
[2016-10-24 20:03] VITALS: BP 94/57
[2016-10-24] MEDS: PHENOBARBITAL 100 MG TABLET PO SCH (23:19)
[2016-10-24] MEDS: PHENOBARBITAL 30 MG TABLET PO SCH (23:19)
[2016-10-25 02:58] VITALS: BP 92/53
[2016-10-25] MEDS: OXYcodone IR 5MG TABLET PO PRN ×6 (03:57→23:34)
[2016-10-25] MEDS: GABAPENTIN 400 MG CAPSULE PO SCH ×3 (05:49→23:31)
[2016-10-25] MEDS: LACTOBACILLUS 1GM/ PACKET PO SCH ×4 (05:50→21:00)
[2016-10-25 05:53] LABS: BLOOD UREA NITROGEN 18 mg/dL (7-18)
[2016-10-25] MEDS: HEPARIN 5,000 UNITS/ML, 1ML SQ SCH ×3 (05:57→23:48)
[2016-10-25] MEDS ORDERED: POTASSIUM CHLORIDE 20 MEQ TAB.ER.PRT PO STA (07:48)
[2016-10-25 07:56] VITALS: BP 120/69
[2016-10-25] MEDS: ALBUTEROL SULFATE 2.5 MG/3 ML NPPB SCH ×4 (08:01→19:02)
[2016-10-25] MEDS: ONDANSETRON 4 MG TABLET PO PRN ×2 (08:54→13:01)
[2016-10-25] MEDS: METOLAZONE 5 MG TABLET PO SCH (09:00)
[2016-10-25] MEDS: CEFDINIR 300 MG CAPSULE PO SCH ×3 (09:00→12:08)
[2016-10-25] MEDS ORDERED: POTASSIUM CHLORIDE 20 MEQ TAB.ER.PRT PO ONE ×2 (10:00→19:22)
[2016-10-25] MEDS ORDERED: VANCOMYCIN PER PHARMACY MC PRN (10:30)
[2016-10-25] MEDS ORDERED: VANCOMYCIN PMX 1GM/200ML 200 ML IV ONE (10:30)
[2016-10-25] MEDS: FUROSEMIDE 40 MG TABLET PO SCH ×2 (10:54→23:33)
[2016-10-25] MEDS: TOPIRAMATE 100 MG TABLET PO SCH ×2 (10:55→23:32)
[2016-10-25] MEDS ORDERED: PHARMACOKINETIC CONSULTATION MC ONE (11:00)
[2016-10-25] MEDS ORDERED: PHARMACOKINETIC MONITORING MC PRN (11:00)
[2016-10-25] MEDS: TEMPLATE NON-FORMULARY MED. (Ambrisentan (Letairis**) 10 MG) HOMEMEDPO SCH (11:07)
[2016-10-25] MEDS: TADALAFIL 40 MG PO SCH (11:08)
[2016-10-25] MEDS: DULOXETINE 30 MG CAPSULE.DR PO SCH ×2 (11:10→23:30)
[2016-10-25] MEDS: FERROUS SULFATE 325 MG TABLET PO SCH (11:13)
[2016-10-25] MEDS: CHOLECALCIFEROL 400 UNITS TABLET PO SCH (11:14)
[2016-10-25] MEDS ORDERED: POTASSIUM CHLORIDE 20 MEQ TAB.ER.PRT PO SCH (12:00)
[2016-10-25] MEDS: PIPERACILLIN/TAZO/PMX 2.25GM 50 ML IV SCH ×3 (12:27→23:24)
[2016-10-25] MEDS: PANTOPRAZOLE 20MG TABLET PO SCH (13:01)
[2016-10-25] MEDS: GUAIFENESIN 200 MG TABLET PO SCH ×2 (13:02→21:00)
[2016-10-25] MEDS: VANCOMYCIN 1,400 MG in SODIUM CHLORIDE 0.9% 250 ML IV SCH (13:21)
[2016-10-25 15:10] VITALS: BP 126/70
[2016-10-25] MEDS: ONDANSETRON ODT 4 MG PO PRN ×2 (17:51→23:23)
[2016-10-25 18:26] VITALS: BP 99/55
[2016-10-25] MEDS: PHENOBARBITAL 30 MG TABLET PO SCH (23:33)
[2016-10-26] MEDS: PHENOBARBITAL 100 MG TABLET PO SCH ×2 (00:20→21:08)
[2016-10-26] MEDS: PANTOPRAZOLE 20MG TABLET PO SCH ×3 (00:43→23:30)
[2016-10-26 01:59] VITALS: BP 89/58
[2016-10-26] MEDS: OXYcodone IR 5MG TABLET PO PRN ×2 (03:17→21:13)
[2016-10-26] MEDS: PIPERACILLIN/TAZO/PMX 2.25GM 50 ML IV SCH ×4 (05:00→22:49)
[2016-10-26] MEDS: GUAIFENESIN 200 MG TABLET PO SCH ×4 (06:00→21:00)
[2016-10-26] MEDS: LACTOBACILLUS 1GM/ PACKET PO SCH ×4 (06:24→21:35)
[2016-10-26] MEDS: HEPARIN 5,000 UNITS/ML, 1ML SQ SCH ×3 (06:26→22:01)
[2016-10-26] MEDS: GABAPENTIN 400 MG CAPSULE PO SCH ×2 (06:26→22:01)
[2016-10-26 06:43] VITALS: BP 89/59
[2016-10-26] MEDS: ALBUTEROL SULFATE 2.5 MG/3 ML NPPB SCH ×4 (08:30→19:06)
[2016-10-26] MEDS: METOLAZONE 5 MG TABLET PO SCH (09:00)
[2016-10-26] MEDS: ONDANSETRON ODT 4 MG PO PRN ×2 (09:58→20:34)
[2016-10-26] MEDS: TOPIRAMATE 100 MG TABLET PO SCH ×2 (12:12→21:10)
[2016-10-26] MEDS: DULOXETINE 30 MG CAPSULE.DR PO SCH ×2 (12:12→19:42)
[2016-10-26] MEDS: TADALAFIL 40 MG PO SCH (12:14)
[2016-10-26] MEDS: FUROSEMIDE 40 MG TABLET PO SCH ×2 (12:14→19:43)
[2016-10-26] MEDS: TEMPLATE NON-FORMULARY MED. (Ambrisentan (Letairis**) 10 MG) HOMEMEDPO SCH (12:15)
[2016-10-26 12:47] VITALS: BP 96/64
[2016-10-26] MEDS: FERROUS SULFATE 325 MG TABLET PO SCH (13:48)
[2016-10-26] MEDS: CHOLECALCIFEROL 400 UNITS TABLET PO SCH (13:48)
[2016-10-26] MEDS: VANCOMYCIN 1,400 MG in SODIUM CHLORIDE 0.9% 250 ML IV SCH (14:11)
[2016-10-26] MEDS: GABAPENTIN 300 MG CAPSULE PO SCH (17:26)
[2016-10-26 18:36] VITALS: BP 104/54
[2016-10-26] MEDS: PHENOBARBITAL 30 MG TABLET PO SCH (21:08)
[2016-10-27 01:13] VITALS: BP 103/56
[2016-10-27] MEDS: OXYcodone IR 5MG TABLET PO PRN ×4 (01:56→22:15)
[2016-10-27] MEDS: PIPERACILLIN/TAZO/PMX 2.25GM 50 ML IV SCH ×3 (04:36→17:44)
[2016-10-27] MEDS: GUAIFENESIN 200 MG TABLET PO SCH ×3 (06:00→15:09)
[2016-10-27] MEDS: LACTOBACILLUS 1GM/ PACKET PO SCH ×3 (06:21→17:44)
[2016-10-27] MEDS: GABAPENTIN 300 MG CAPSULE PO SCH ×2 (06:22→17:44)
[2016-10-27] MEDS: HEPARIN 5,000 UNITS/ML, 1ML SQ SCH ×3 (06:29→22:59)
[2016-10-27 07:39] VITALS: BP 87/52
[2016-10-27] MEDS: ALBUTEROL SULFATE 2.5 MG/3 ML NPPB SCH ×4 (07:50→19:32)
[2016-10-27] MEDS: TADALAFIL 40 MG PO SCH (09:00)
[2016-10-27] MEDS: TEMPLATE NON-FORMULARY MED. (Ambrisentan (Letairis**) 10 MG) HOMEMEDPO SCH (09:00)
[2016-10-27] MEDS: DULOXETINE 30 MG CAPSULE.DR PO SCH ×2 (10:30→22:35)
[2016-10-27] MEDS: METOLAZONE 5 MG TABLET PO SCH (10:31)
[2016-10-27 10:51] LABS: BLOOD UREA NITROGEN 20 mg/dL (7-18)
[2016-10-27] MEDS ORDERED: POTASSIUM CHLORIDE 40 MEQ in SODIUM CHLORIDE 0.9% 500 ML IV SCH (11:30)
[2016-10-27] MEDS: TOPIRAMATE 100 MG TABLET PO SCH (11:59)
[2016-10-27] MEDS: FERROUS SULFATE 325 MG TABLET PO SCH (12:00)
[2016-10-27 13:10] VITALS: BP 93/55
[2016-10-27] MEDS ORDERED: POTASSIUM CHLORIDE 20 MEQ TAB.ER.PRT PO ONE ×2 (13:30→21:00)
[2016-10-27] MEDS: CHOLECALCIFEROL 400 UNITS TABLET PO SCH (13:40)
[2016-10-27] MEDS: FUROSEMIDE 40 MG TABLET PO SCH ×2 (13:40→21:00)
[2016-10-27] MEDS: PANTOPRAZOLE 20MG TABLET PO SCH (13:46)
[2016-10-27] MEDS: ONDANSETRON ODT 4 MG PO PRN ×2 (13:47→22:13)
[2016-10-27] MEDS: VANCOMYCIN 1,500 MG in SODIUM CHLORIDE 0.9% 250 ML IV SCH (13:47)
[2016-10-27 18:31] VITALS: BP 96/57
[2016-10-27] MEDS: PHENOBARBITAL 100 MG TABLET PO SCH (21:00)
[2016-10-27] MEDS: GABAPENTIN 400 MG CAPSULE PO SCH (22:15)
[2016-10-27] MEDS: PHENOBARBITAL 30 MG TABLET PO SCH (22:57)
[2016-10-27] MEDS: ALBUTEROL SULFATE 2.5 MG/3 ML NPPB PRN (23:13)
[2016-10-28] MEDS: PIPERACILLIN/TAZO/PMX 2.25GM 50 ML IV SCH ×4 (00:55→19:49)
[2016-10-28] MEDS: PANTOPRAZOLE 20MG TABLET PO SCH ×3 (00:56→23:20)
[2016-10-28] MEDS: TOPIRAMATE 100 MG TABLET PO SCH ×3 (00:56→20:10)
[2016-10-28] MEDS: LACTOBACILLUS 1GM/ PACKET PO SCH ×5 (00:57→23:20)
[2016-10-28] MEDS: GUAIFENESIN 200 MG TABLET PO SCH ×5 (00:58→23:20)
[2016-10-28 02:02] VITALS: BP 90/56
[2016-10-28] MEDS: OXYcodone IR 5MG TABLET PO PRN ×3 (02:38→18:33)
[2016-10-28] MEDS: HEPARIN 5,000 UNITS/ML, 1ML SQ SCH ×3 (06:12→23:19)
[2016-10-28] MEDS: GABAPENTIN 300 MG CAPSULE PO SCH ×2 (06:13→18:33)
[2016-10-28 06:31] LABS: BLOOD UREA NITROGEN 17 mg/dL (7-18)
[2016-10-28] MEDS: ALBUTEROL SULFATE 2.5 MG/3 ML NPPB SCH ×4 (06:55→20:20)
[2016-10-28 07:47] VITALS: BP 88/56
[2016-10-28] MEDS: POTASSIUM CHLORIDE 20 MEQ TAB.ER.PRT PO SCH ×4 (08:12→14:58)
[2016-10-28] MEDS: VANCOMYCIN 1,500 MG in SODIUM CHLORIDE 0.9% 250 ML IV SCH (08:13)
[2016-10-28] MEDS ORDERED: POTASSIUM CHLORIDE 20 MEQ TAB.ER.PRT PO ONE ×2 (08:30→18:00)
[2016-10-28] MEDS: METOLAZONE 5 MG TABLET PO SCH (09:00)
[2016-10-28] MEDS: DULOXETINE 30 MG CAPSULE.DR PO SCH ×2 (09:45→20:07)
[2016-10-28] MEDS: FERROUS SULFATE 325 MG TABLET PO SCH (09:45)
[2016-10-28] MEDS: TADALAFIL 40 MG PO SCH (09:46)
[2016-10-28] MEDS: TEMPLATE NON-FORMULARY MED. (Ambrisentan (Letairis**) 10 MG) HOMEMEDPO SCH (09:46)
[2016-10-28] MEDS: ONDANSETRON ODT 4 MG PO PRN ×2 (09:47→19:59)
[2016-10-28] MEDS: CHOLECALCIFEROL 400 UNITS TABLET PO SCH (10:50)
[2016-10-28] MEDS: FUROSEMIDE 40 MG TABLET PO SCH ×2 (10:51→20:08)
[2016-10-28 14:09] VITALS: BP 90/55
[2016-10-28 18:44] VITALS: BP 94/56
[2016-10-28] MEDS: PHENOBARBITAL 100 MG TABLET PO SCH (20:18)
[2016-10-28] MEDS: PHENOBARBITAL 30 MG TABLET PO SCH (20:18)
[2016-10-28] MEDS: GABAPENTIN 400 MG CAPSULE PO SCH (23:20)
[2016-10-29] MEDS: OXYcodone IR 5MG TABLET PO PRN ×4 (00:22→20:52)
[2016-10-29 00:56] VITALS: BP 105/65
[2016-10-29] MEDS: PIPERACILLIN/TAZO/PMX 2.25GM 50 ML IV SCH ×4 (01:05→22:21)
[2016-10-29] MEDS: VANCOMYCIN 1,500 MG in SODIUM CHLORIDE 0.9% 250 ML IV SCH (02:15)
[2016-10-29] MEDS: ONDANSETRON ODT 4 MG PO PRN ×3 (04:50→20:51)
[2016-10-29] MEDS: ACETAMINOPHEN 325 MG TABLET PO PRN (04:52)
[2016-10-29 04:56] LABS: BLOOD UREA NITROGEN 17 mg/dL (7-18)
[2016-10-29] MEDS: GABAPENTIN 300 MG CAPSULE PO SCH (04:56)
[2016-10-29] MEDS: GUAIFENESIN 200 MG TABLET PO SCH ×4 (04:56→22:21)
[2016-10-29] MEDS: LACTOBACILLUS 1GM/ PACKET PO SCH ×3 (04:58→16:33)
[2016-10-29] MEDS: ALBUTEROL SULFATE 2.5 MG/3 ML NPPB SCH ×4 (07:15→19:03)
[2016-10-29] MEDS: TADALAFIL 40 MG PO SCH (07:46)
[2016-10-29] MEDS: HEPARIN 5,000 UNITS/ML, 1ML SQ SCH ×2 (08:26→16:35)
[2016-10-29 08:29] VITALS: BP 83/50
[2016-10-29] MEDS: FUROSEMIDE 40 MG TABLET PO SCH ×2 (08:32→20:53)
[2016-10-29] MEDS: TEMPLATE NON-FORMULARY MED. (Ambrisentan (Letairis**) 10 MG) HOMEMEDPO SCH (09:00)
[2016-10-29] MEDS: METOLAZONE 5 MG TABLET PO SCH (09:10)
[2016-10-29] MEDS: TOPIRAMATE 100 MG TABLET PO SCH ×2 (09:10→22:21)
[2016-10-29] MEDS: DULOXETINE 30 MG CAPSULE.DR PO SCH ×2 (09:13→20:55)
[2016-10-29 12:27] VITALS: BP 80/49
[2016-10-29] MEDS: PANTOPRAZOLE 20MG TABLET PO SCH ×2 (12:36→22:21)
[2016-10-29] MEDS: POTASSIUM CHLORIDE 20 MEQ TAB.ER.PRT PO SCH (12:36)
[2016-10-29] MEDS: GABAPENTIN 400 MG CAPSULE PO SCH ×2 (12:37→22:21)
[2016-10-29] MEDS: FERROUS SULFATE 325 MG TABLET PO SCH (12:37)
[2016-10-29] MEDS: CHOLECALCIFEROL 400 UNITS TABLET PO SCH (12:37)
[2016-10-29 16:00] VITALS: BP_SYST 90; BP_SYST 91; BP_DIAS 56; BP_DIAS 59
[2016-10-29] MEDS ORDERED: GABAPENTIN 300 MG CAPSULE PO SCH (18:00)
[2016-10-29 20:18] VITALS: BP 89/53
[2016-10-29] MEDS: PHENOBARBITAL 100 MG TABLET PO SCH (20:53)
[2016-10-29] MEDS: PHENOBARBITAL 30 MG TABLET PO SCH (20:54)
[2016-10-30] MEDS: OXYcodone IR 5MG TABLET PO PRN ×4 (00:50→21:20)
[2016-10-30] MEDS: LACTOBACILLUS 1GM/ PACKET PO SCH ×5 (00:52→21:27)
[2016-10-30] MEDS: HEPARIN 5,000 UNITS/ML, 1ML SQ SCH ×4 (00:52→23:33)
[2016-10-30 02:41] VITALS: BP 99/61
[2016-10-30] MEDS ORDERED: BENZONATATE 100 MG CAPSULE PO PRN (04:00)
[2016-10-30] MEDS: PIPERACILLIN/TAZO/PMX 2.25GM 50 ML IV SCH ×4 (04:09→21:59)
[2016-10-30] MEDS: GABAPENTIN 400 MG CAPSULE PO SCH ×3 (05:50→23:26)
[2016-10-30] MEDS: GUAIFENESIN 200 MG TABLET PO SCH ×4 (05:50→23:25)
[2016-10-30] MEDS: ALBUTEROL SULFATE 2.5 MG/3 ML NPPB SCH ×4 (06:52→21:46)
[2016-10-30] MEDS: TADALAFIL 40 MG PO SCH (08:29)
[2016-10-30 08:32] VITALS: BP 104/56
[2016-10-30] MEDS: POTASSIUM CHLORIDE 20 MEQ TAB.ER.PRT PO SCH (08:46)
[2016-10-30] MEDS: TEMPLATE NON-FORMULARY MED. (Ambrisentan (Letairis**) 10 MG) HOMEMEDPO SCH (08:46)
[2016-10-30] MEDS: FUROSEMIDE 40 MG TABLET PO SCH ×2 (08:47→21:21)
[2016-10-30] MEDS: ONDANSETRON ODT 4 MG PO PRN ×2 (08:47→21:12)
[2016-10-30] MEDS: METOLAZONE 5 MG TABLET PO SCH (08:47)
[2016-10-30] MEDS: CHOLECALCIFEROL 400 UNITS TABLET PO SCH (10:16)
[2016-10-30] MEDS: DULOXETINE 30 MG CAPSULE.DR PO SCH ×2 (10:16→21:21)
[2016-10-30] MEDS: TOPIRAMATE 100 MG TABLET PO SCH ×2 (10:16→23:25)
[2016-10-30] MEDS: FERROUS SULFATE 325 MG TABLET PO SCH (10:16)
[2016-10-30] MEDS: PANTOPRAZOLE 20MG TABLET PO SCH ×2 (12:43→23:25)
[2016-10-30 13:55] VITALS: BP 106/60
[2016-10-30 20:20] VITALS: BP 110/62
[2016-10-30] MEDS ORDERED: TEMPLATE NON-FORMULARY MED. (Tadalafil** (Adcirca**) 40 MG) PO SCH (21:00)
[2016-10-30] MEDS: PHENOBARBITAL 100 MG TABLET PO SCH (23:26)
[2016-10-30] MEDS: PHENOBARBITAL 30 MG TABLET PO SCH (23:27)
[2016-10-31 02:17] VITALS: BP 103/65
[2016-10-31] MEDS: OXYcodone IR 5MG TABLET PO PRN ×4 (02:29→22:07)
[2016-10-31] MEDS: PIPERACILLIN/TAZO/PMX 2.25GM 50 ML IV SCH ×4 (04:09→23:11)
[2016-10-31] MEDS: GABAPENTIN 400 MG CAPSULE PO SCH ×3 (05:38→23:03)
[2016-10-31] MEDS: LACTOBACILLUS 1GM/ PACKET PO SCH ×4 (05:39→23:04)
[2016-10-31] MEDS: GUAIFENESIN 200 MG TABLET PO SCH ×4 (05:39→23:03)
[2016-10-31] MEDS: ALBUTEROL SULFATE 2.5 MG/3 ML NPPB SCH ×4 (06:30→19:40)
[2016-10-31 08:49] VITALS: BP 95/58
[2016-10-31] MEDS: HEPARIN 5,000 UNITS/ML, 1ML SQ SCH ×2 (08:54→17:17)
[2016-10-31] MEDS: POTASSIUM CHLORIDE 20 MEQ TAB.ER.PRT PO SCH (08:56)
[2016-10-31] MEDS: ONDANSETRON ODT 4 MG PO PRN ×2 (08:58→21:11)
[2016-10-31] MEDS: FUROSEMIDE 40 MG TABLET PO SCH ×2 (08:58→21:21)
[2016-10-31] MEDS: FERROUS SULFATE 325 MG TABLET PO SCH (09:00)
[2016-10-31] MEDS: TEMPLATE NON-FORMULARY MED. (Ambrisentan (Letairis**) 10 MG) HOMEMEDPO SCH (09:00)
[2016-10-31] MEDS ORDERED: TEMPLATE NON-FORMULARY MED. (Tadalafil** (Adcirca**) 40 MG) PO SCH ×2 (09:00)
[2016-10-31] MEDS: METOLAZONE 5 MG TABLET PO SCH ×2 (09:00→11:35)
[2016-10-31] MEDS: TOPIRAMATE 100 MG TABLET PO SCH (09:07)
[2016-10-31] MEDS: DULOXETINE 30 MG CAPSULE.DR PO SCH ×2 (09:29→21:53)
[2016-10-31] MEDS: CHOLECALCIFEROL 400 UNITS TABLET PO SCH (11:01)
[2016-10-31] MEDS: PANTOPRAZOLE 20MG TABLET PO SCH ×2 (11:01→21:54)
[2016-10-31 12:42] VITALS: BP 86/54
[2016-10-31 14:59] VITALS: BP 92/55
[2016-10-31 18:50] VITALS: BP 97/60
[2016-10-31] MEDS: TEMPLATE NON-FORMULARY MED. (Tadalafil** (Adcirca**) 40 MG) PO SCH (21:54)
[2016-10-31] MEDS: PHENOBARBITAL 100 MG TABLET PO SCH (23:03)
[2016-10-31] MEDS: PHENOBARBITAL 30 MG TABLET PO SCH (23:04)
[2016-11-01] MEDS: OXYcodone IR 5MG TABLET PO PRN ×5 (01:44→20:56)
[2016-11-01 02:18] VITALS: BP 106/65
[2016-11-01] MEDS: ACETAMINOPHEN 325 MG TABLET PO PRN (03:33)
[2016-11-01] MEDS: PIPERACILLIN/TAZO/PMX 2.25GM 50 ML IV SCH ×5 (04:30→22:36)
[2016-11-01 05:34] LABS: BLOOD UREA NITROGEN 20 mg/dL (7-18)
[2016-11-01] MEDS: GUAIFENESIN 200 MG TABLET PO SCH ×4 (05:54→22:34)
[2016-11-01] MEDS: HEPARIN 5,000 UNITS/ML, 1ML SQ SCH ×3 (05:54→21:39)
[2016-11-01] MEDS: LACTOBACILLUS 1GM/ PACKET PO SCH ×4 (05:55→22:34)
[2016-11-01] MEDS: ALBUTEROL SULFATE 2.5 MG/3 ML NPPB SCH ×4 (07:05→19:51)
[2016-11-01 08:25] VITALS: BP 90/50
[2016-11-01] MEDS: TEMPLATE NON-FORMULARY MED. (Ambrisentan (Letairis**) 10 MG) HOMEMEDPO SCH (08:53)
[2016-11-01] MEDS: CHOLECALCIFEROL 400 UNITS TABLET PO SCH (08:54)
[2016-11-01] MEDS: FERROUS SULFATE 325 MG TABLET PO SCH (08:54)
[2016-11-01] MEDS: GABAPENTIN 400 MG CAPSULE PO SCH ×3 (08:54→21:38)
[2016-11-01] MEDS: FUROSEMIDE 40 MG TABLET PO SCH ×2 (08:54→20:47)
[2016-11-01] MEDS: DULOXETINE 30 MG CAPSULE.DR PO SCH ×2 (08:55→21:37)
[2016-11-01] MEDS: POTASSIUM CHLORIDE 20 MEQ TAB.ER.PRT PO SCH (08:55)
[2016-11-01] MEDS ORDERED: VANCOMYCIN 1,500 MG in SODIUM CHLORIDE 0.9% 250 ML IV ONE (09:00)
[2016-11-01] MEDS: ONDANSETRON ODT 4 MG PO PRN ×2 (09:15→21:34)
[2016-11-01] MEDS: PANTOPRAZOLE 20MG TABLET PO SCH ×2 (11:13→21:37)
[2016-11-01 14:37] VITALS: BP 102/55
[2016-11-01 18:28] VITALS: BP 101/62
[2016-11-01] MEDS: TEMPLATE NON-FORMULARY MED. (Tadalafil** (Adcirca**) 40 MG) PO SCH (20:58)
[2016-11-01] MEDS: PHENOBARBITAL 30 MG TABLET PO SCH (22:33)
[2016-11-01] MEDS: PHENOBARBITAL 100 MG TABLET PO SCH (22:33)
[2016-11-01] MEDS: ALBUTEROL SULFATE 2.5 MG/3 ML NPPB PRN (23:48)
[2016-11-02 01:38] VITALS: BP 91/50
[2016-11-02] MEDS: OXYcodone IR 5MG TABLET PO PRN ×4 (02:07→22:11)
[2016-11-02] MEDS: PIPERACILLIN/TAZO/PMX 2.25GM 50 ML IV SCH ×4 (04:37→22:13)
[2016-11-02] MEDS: LACTOBACILLUS 1GM/ PACKET PO SCH ×5 (06:00→22:12)
[2016-11-02] MEDS: GABAPENTIN 400 MG CAPSULE PO SCH ×3 (06:14→22:13)
[2016-11-02] MEDS: GUAIFENESIN 200 MG TABLET PO SCH ×4 (06:14→21:05)
[2016-11-02] MEDS: HEPARIN 5,000 UNITS/ML, 1ML SQ SCH ×3 (06:15→22:13)
[2016-11-02] MEDS: ALBUTEROL SULFATE 2.5 MG/3 ML NPPB SCH ×4 (07:00→20:00)
[2016-11-02 07:18] VITALS: BP 88/50
[2016-11-02 08:47] VITALS: BP 94/51
[2016-11-02] MEDS: POTASSIUM CHLORIDE 20 MEQ TAB.ER.PRT PO SCH ×4 (08:47→21:04)
[2016-11-02] MEDS: FUROSEMIDE 40 MG TABLET PO SCH ×2 (08:50→21:11)
[2016-11-02] MEDS: TEMPLATE NON-FORMULARY MED. (Ambrisentan (Letairis**) 10 MG) HOMEMEDPO SCH (08:52)
[2016-11-02] MEDS: ONDANSETRON ODT 4 MG PO PRN ×3 (08:56→21:11)
[2016-11-02] MEDS: FERROUS SULFATE 325 MG TABLET PO SCH (08:56)
[2016-11-02] MEDS: CHOLECALCIFEROL 400 UNITS TABLET PO SCH (10:07)
[2016-11-02] MEDS: DULOXETINE 30 MG CAPSULE.DR PO SCH ×2 (10:07→22:11)
[2016-11-02] MEDS: PANTOPRAZOLE 20MG TABLET PO SCH ×2 (11:30→23:42)
[2016-11-02 14:56] VITALS: BP 94/58
[2016-11-02 18:58] VITALS: BP 98/58
[2016-11-02] MEDS ORDERED: [UNRECOGNIZED DRUG - REMARK] MC PRN (21:00)
[2016-11-02] MEDS: TEMPLATE NON-FORMULARY MED. (Tadalafil** (Adcirca**) 40 MG) PO SCH (21:00)
[2016-11-02] MEDS: PHENOBARBITAL 100 MG TABLET PO SCH (21:05)
[2016-11-02] MEDS: PHENOBARBITAL 30 MG TABLET PO SCH (21:05)
[2016-11-03 01:21] VITALS: BP 92/57
[2016-11-03] MEDS: OXYcodone IR 5MG TABLET PO PRN ×4 (03:10→23:28)
[2016-11-03] MEDS: HEPARIN 5,000 UNITS/ML, 1ML SQ SCH ×3 (05:26→22:34)
[2016-11-03] MEDS: LACTOBACILLUS 1GM/ PACKET PO SCH ×4 (05:26→21:00)
[2016-11-03] MEDS: PIPERACILLIN/TAZO/PMX 2.25GM 50 ML IV SCH ×4 (05:26→22:36)
[2016-11-03] MEDS: GUAIFENESIN 200 MG TABLET PO SCH ×4 (05:36→22:33)
[2016-11-03 06:02] LABS: BLOOD UREA NITROGEN 18 mg/dL (7-18)
[2016-11-03 07:20] VITALS: BP 95/57
[2016-11-03] MEDS: ALBUTEROL SULFATE 2.5 MG/3 ML NPPB SCH ×4 (07:26→20:20)
[2016-11-03] MEDS: DULOXETINE 30 MG CAPSULE.DR PO SCH ×2 (09:45→20:14)
[2016-11-03] MEDS: ONDANSETRON ODT 4 MG PO PRN ×3 (09:45→22:34)
[2016-11-03] MEDS: TEMPLATE NON-FORMULARY MED. (Ambrisentan (Letairis**) 10 MG) HOMEMEDPO SCH (09:46)
[2016-11-03] MEDS: POTASSIUM CHLORIDE 20 MEQ TAB.ER.PRT PO SCH (09:48)
[2016-11-03] MEDS: FERROUS SULFATE 325 MG TABLET PO SCH (11:46)
[2016-11-03] MEDS: CHOLECALCIFEROL 400 UNITS TABLET PO SCH (11:46)
[2016-11-03] MEDS: FUROSEMIDE 40 MG TABLET PO SCH ×2 (11:47→20:13)
[2016-11-03] MEDS: METOLAZONE 5 MG TABLET PO SCH (11:47)
[2016-11-03] MEDS ORDERED: GABAPENTIN 400 MG CAPSULE PO SCH (13:00)
[2016-11-03] MEDS: PANTOPRAZOLE 20MG TABLET PO SCH ×2 (13:29→22:31)
[2016-11-03] MEDS ORDERED: VANCOMYCIN 1,500 MG in SODIUM CHLORIDE 0.9% 250 ML IV ONE (14:00)
[2016-11-03] MEDS: GABAPENTIN 400 MG CAPSULE PO SCH ×2 (15:07→22:31)
[2016-11-03 15:12] VITALS: BP 91/55
[2016-11-03 19:43] VITALS: BP 97/61
[2016-11-03] MEDS: TEMPLATE NON-FORMULARY MED. (Tadalafil** (Adcirca**) 40 MG) PO SCH (20:49)
[2016-11-03] MEDS: PHENOBARBITAL 100 MG TABLET PO SCH (22:32)
[2016-11-03] MEDS: PHENOBARBITAL 30 MG TABLET PO SCH (22:32)
[2016-11-04 02:00] VITALS: BP 93/57
[2016-11-04] MEDS: OXYcodone IR 5MG TABLET PO PRN ×4 (03:47→20:24)
[2016-11-04] MEDS: PIPERACILLIN/TAZO/PMX 2.25GM 50 ML IV SCH ×4 (03:48→22:49)
[2016-11-04] MEDS: LACTOBACILLUS 1GM/ PACKET PO SCH ×4 (05:44→20:27)
[2016-11-04] MEDS: GUAIFENESIN 200 MG TABLET PO SCH ×4 (05:44→20:29)
[2016-11-04] MEDS: HEPARIN 5,000 UNITS/ML, 1ML SQ SCH ×3 (05:47→22:50)
[2016-11-04] MEDS: ALBUTEROL SULFATE 2.5 MG/3 ML NPPB SCH ×4 (07:00→19:35)
[2016-11-04] MEDS: ONDANSETRON ODT 4 MG PO PRN ×2 (08:25→20:24)
[2016-11-04] MEDS: FERROUS SULFATE 325 MG TABLET PO SCH (08:26)
[2016-11-04] MEDS: GABAPENTIN 400 MG CAPSULE PO SCH ×3 (08:26→20:29)
[2016-11-04] MEDS: DULOXETINE 30 MG CAPSULE.DR PO SCH ×2 (08:27→20:26)
[2016-11-04 09:55] VITALS: BP 92/51
[2016-11-04] MEDS: CHOLECALCIFEROL 400 UNITS TABLET PO SCH (10:29)
[2016-11-04] MEDS: FUROSEMIDE 40 MG TABLET PO SCH ×2 (10:29→20:29)
[2016-11-04] MEDS: POTASSIUM CHLORIDE 20 MEQ TAB.ER.PRT PO SCH (10:29)
[2016-11-04] MEDS: PANTOPRAZOLE 20MG TABLET PO SCH ×2 (11:01→22:48)
[2016-11-04] MEDS: TEMPLATE NON-FORMULARY MED. (Ambrisentan (Letairis**) 10 MG) HOMEMEDPO SCH (11:01)
[2016-11-04 14:39] VITALS: BP 92/60
[2016-11-04 19:02] VITALS: BP 97/61
[2016-11-04] MEDS: TEMPLATE NON-FORMULARY MED. (Tadalafil** (Adcirca**) 40 MG) PO SCH (19:39)
[2016-11-04] MEDS: PHENOBARBITAL 30 MG TABLET PO SCH (22:48)
[2016-11-04] MEDS: PHENOBARBITAL 100 MG TABLET PO SCH (22:49)
[2016-11-04] MEDS: ALBUTEROL SULFATE 2.5 MG/3 ML NPPB PRN (23:15)
[2016-11-05] MEDS: OXYcodone IR 5MG TABLET PO PRN ×5 (01:26→23:02)
[2016-11-05 02:08] VITALS: BP 110/72
[2016-11-05] MEDS: GUAIFENESIN 200 MG TABLET PO SCH ×4 (05:28→22:10)
[2016-11-05] MEDS: PIPERACILLIN/TAZO/PMX 2.25GM 50 ML IV SCH ×4 (05:29→23:06)
[2016-11-05] MEDS: LACTOBACILLUS 1GM/ PACKET PO SCH ×4 (05:29→23:01)
[2016-11-05 05:55] LABS: BLOOD UREA NITROGEN 17 mg/dL (7-18)
[2016-11-05] MEDS: HEPARIN 5,000 UNITS/ML, 1ML SQ SCH ×3 (06:11→23:06)
[2016-11-05] MEDS: ALBUTEROL SULFATE 2.5 MG/3 ML NPPB SCH ×5 (07:29→19:41)
[2016-11-05 08:15] VITALS: BP 92/51
[2016-11-05] MEDS: GABAPENTIN 400 MG CAPSULE PO SCH ×4 (09:00→22:10)
[2016-11-05] MEDS: TEMPLATE NON-FORMULARY MED. (Ambrisentan (Letairis**) 10 MG) HOMEMEDPO SCH (09:00)
[2016-11-05] MEDS: POTASSIUM CHLORIDE 20 MEQ TAB.ER.PRT PO SCH ×3 (09:07→15:22)
[2016-11-05] MEDS: DULOXETINE 30 MG CAPSULE.DR PO SCH ×2 (09:09→20:51)
[2016-11-05] MEDS: ONDANSETRON ODT 4 MG PO PRN ×3 (09:45→21:34)
[2016-11-05] MEDS: FUROSEMIDE 40 MG TABLET PO SCH ×2 (09:48→20:51)
[2016-11-05] MEDS: METOLAZONE 5 MG TABLET PO SCH (09:48)
[2016-11-05] MEDS: PANTOPRAZOLE 20MG TABLET PO SCH ×2 (11:24→21:38)
[2016-11-05] MEDS: CHOLECALCIFEROL 400 UNITS TABLET PO SCH (11:24)
[2016-11-05] MEDS: FERROUS SULFATE 325 MG TABLET PO SCH (11:28)
[2016-11-05 13:20] VITALS: BP 112/66
[2016-11-05 19:20] VITALS: BP 133/79
[2016-11-05] MEDS: TEMPLATE NON-FORMULARY MED. (Tadalafil** (Adcirca**) 40 MG) PO SCH (21:00)
[2016-11-05] MEDS: PHENOBARBITAL 30 MG TABLET PO SCH (23:01)
[2016-11-05] MEDS: PHENOBARBITAL 100 MG TABLET PO SCH (23:01)
[2016-11-06 00:26] VITALS: BP 110/66
[2016-11-06] MEDS: ONDANSETRON ODT 4 MG PO PRN ×4 (02:56→21:17)
[2016-11-06] MEDS: OXYcodone IR 5MG TABLET PO PRN ×4 (03:07→21:14)
[2016-11-06] MEDS: PIPERACILLIN/TAZO/PMX 2.25GM 50 ML IV SCH ×4 (04:55→23:08)
[2016-11-06] MEDS: GUAIFENESIN 200 MG TABLET PO SCH ×4 (04:55→21:16)
[2016-11-06 05:19] LABS: BLOOD UREA NITROGEN 15 mg/dL (7-18)
[2016-11-06] MEDS: LACTOBACILLUS 1GM/ PACKET PO SCH ×4 (06:00→23:08)
[2016-11-06] MEDS: ALBUTEROL SULFATE 2.5 MG/3 ML NPPB SCH ×4 (06:59→21:40)
[2016-11-06] MEDS: TEMPLATE NON-FORMULARY MED. (Ambrisentan (Letairis**) 10 MG) HOMEMEDPO SCH (09:00)
[2016-11-06 09:14] VITALS: BP 101/59
[2016-11-06] MEDS: HEPARIN 5,000 UNITS/ML, 1ML SQ SCH ×2 (09:17→17:11)
[2016-11-06] MEDS: POTASSIUM CHLORIDE 20 MEQ TAB.ER.PRT PO SCH ×2 (09:17→17:11)
[2016-11-06] MEDS: GABAPENTIN 400 MG CAPSULE PO SCH ×3 (09:18→23:08)
[2016-11-06] MEDS: DULOXETINE 30 MG CAPSULE.DR PO SCH ×2 (09:18→21:15)
[2016-11-06] MEDS: FUROSEMIDE 40 MG TABLET PO SCH ×2 (09:18→20:11)
[2016-11-06] MEDS: FERROUS SULFATE 325 MG TABLET PO SCH (10:48)
[2016-11-06] MEDS: PANTOPRAZOLE 20MG TABLET PO SCH ×2 (10:49→20:11)
[2016-11-06] MEDS: CHOLECALCIFEROL 400 UNITS TABLET PO SCH (10:49)
[2016-11-06 13:16] VITALS: BP 96/65
[2016-11-06 18:41] VITALS: BP 96/62
[2016-11-06] MEDS: TEMPLATE NON-FORMULARY MED. (Tadalafil** (Adcirca**) 40 MG) PO SCH (21:00)
[2016-11-06] MEDS: PHENOBARBITAL 30 MG TABLET PO SCH (23:07)
[2016-11-06] MEDS: PHENOBARBITAL 100 MG TABLET PO SCH (23:07)
[2016-11-07 01:01] VITALS: BP 102/65
[2016-11-07] MEDS: HEPARIN 5,000 UNITS/ML, 1ML SQ SCH ×3 (01:19→15:30)
[2016-11-07] MEDS: OXYcodone IR 5MG TABLET PO PRN ×5 (01:20→21:48)
[2016-11-07] MEDS: LACTOBACILLUS 1GM/ PACKET PO SCH ×2 (05:55→13:00)
[2016-11-07] MEDS: GUAIFENESIN 200 MG TABLET PO SCH ×4 (05:55→22:49)
[2016-11-07] MEDS: PIPERACILLIN/TAZO/PMX 2.25GM 50 ML IV SCH ×3 (05:55→20:19)
[2016-11-07] MEDS: ALBUTEROL SULFATE 2.5 MG/3 ML NPPB SCH ×4 (07:32→19:48)
[2016-11-07 08:30] VITALS: BP 106/67
[2016-11-07] MEDS: ONDANSETRON ODT 4 MG PO PRN ×3 (09:57→21:48)
[2016-11-07] MEDS: FUROSEMIDE 40 MG TABLET PO SCH ×2 (09:59→20:20)
[2016-11-07] MEDS: DULOXETINE 30 MG CAPSULE.DR PO SCH ×2 (10:00→21:48)
[2016-11-07] MEDS: TEMPLATE NON-FORMULARY MED. (Ambrisentan (Letairis**) 10 MG) HOMEMEDPO SCH (10:02)
[2016-11-07] MEDS: GABAPENTIN 400 MG CAPSULE PO SCH ×3 (10:04→22:49)
[2016-11-07] MEDS: METOLAZONE 5 MG TABLET PO SCH (10:06)
[2016-11-07] MEDS: POTASSIUM CHLORIDE 20 MEQ TAB.ER.PRT PO SCH ×2 (10:08→17:20)
[2016-11-07] MEDS: FERROUS SULFATE 325 MG TABLET PO SCH (12:56)
[2016-11-07] MEDS: CHOLECALCIFEROL 400 UNITS TABLET PO SCH (12:56)
[2016-11-07] MEDS: PANTOPRAZOLE 20MG TABLET PO SCH ×2 (12:56→22:49)
[2016-11-07 14:30] VITALS: BP 104/58
[2016-11-07] MEDS: LACTOBACILLUS CHEW TABLET PO SCH ×2 (17:22→22:49)
[2016-11-07 19:58] VITALS: BP 100/58
[2016-11-07] MEDS ORDERED: ENOXAPARIN 30 MG/0.3 ML SQ SCH (21:00)
[2016-11-07] MEDS: TEMPLATE NON-FORMULARY MED. (Tadalafil** (Adcirca**) 40 MG) PO SCH (21:00)
[2016-11-07] MEDS: PHENOBARBITAL 100 MG TABLET PO SCH (22:48)
[2016-11-07] MEDS: PHENOBARBITAL 30 MG TABLET PO SCH (22:48)
[2016-11-08 00:54] VITALS: BP 98/54
[2016-11-08] MEDS: PIPERACILLIN/TAZO/PMX 2.25GM 50 ML IV SCH ×3 (01:55→14:26)
[2016-11-08] MEDS: OXYcodone IR 5MG TABLET PO PRN ×5 (01:55→21:07)
[2016-11-08] MEDS: ONDANSETRON ODT 4 MG PO PRN ×4 (01:55→21:01)
[2016-11-08 05:13] LABS: BLOOD UREA NITROGEN 14 mg/dL (7-18)
[2016-11-08 05:17] LABS: ASPARTATE AMINO TRANSFERASE 28 U/L (15-37)
[2016-11-08] MEDS: GUAIFENESIN 200 MG TABLET PO SCH ×4 (06:16→21:05)
[2016-11-08] MEDS: LACTOBACILLUS CHEW TABLET PO SCH ×4 (06:16→22:44)
[2016-11-08 07:59] VITALS: BP 92/56
[2016-11-08] MEDS: POTASSIUM CHLORIDE 20 MEQ TAB.ER.PRT PO SCH ×2 (08:24→16:59)
[2016-11-08] MEDS: TEMPLATE NON-FORMULARY MED. (Ambrisentan (Letairis**) 10 MG) HOMEMEDPO SCH (08:25)
[2016-11-08] MEDS: FERROUS SULFATE 325 MG TABLET PO SCH (08:26)
[2016-11-08] MEDS: DULOXETINE 30 MG CAPSULE.DR PO SCH ×2 (08:26→21:03)
[2016-11-08] MEDS: GABAPENTIN 400 MG CAPSULE PO SCH ×3 (08:27→22:45)
[2016-11-08] MEDS: CHOLECALCIFEROL 400 UNITS TABLET PO SCH (08:27)
[2016-11-08] MEDS: FUROSEMIDE 40 MG TABLET PO SCH ×2 (08:27→21:04)
[2016-11-08] MEDS: ALBUTEROL SULFATE 2.5 MG/3 ML NPPB SCH ×4 (08:30→19:33)
[2016-11-08] MEDS: PANTOPRAZOLE 20MG TABLET PO SCH (12:58)
[2016-11-08 13:03] VITALS: BP 104/57
[2016-11-08 18:54] VITALS: BP 105/64
[2016-11-08] MEDS: ENOXAPARIN 40 MG/0.4 ML SQ SCH (21:08)
[2016-11-08] MEDS: PHENOBARBITAL 30 MG TABLET PO SCH (22:44)
[2016-11-08] MEDS: PHENOBARBITAL 100 MG TABLET PO SCH (22:44)
[2016-11-09] MEDS: ONDANSETRON ODT 4 MG PO PRN ×3 (01:14→16:05)
[2016-11-09] MEDS: OXYcodone IR 5MG TABLET PO PRN ×5 (01:14→21:14)
[2016-11-09] MEDS: PANTOPRAZOLE 20MG TABLET PO SCH ×3 (01:14→23:07)
[2016-11-09 01:29] VITALS: BP 98/58
[2016-11-09] MEDS: GUAIFENESIN 200 MG TABLET PO SCH ×4 (05:37→21:19)
[2016-11-09] MEDS: LACTOBACILLUS CHEW TABLET PO SCH ×4 (05:38→23:04)
[2016-11-09] MEDS: ALBUTEROL SULFATE 2.5 MG/3 ML NPPB SCH ×4 (06:55→19:52)
[2016-11-09 08:09] VITALS: BP 92/51
[2016-11-09] MEDS ORDERED: POTASSIUM CHLORIDE 40 MEQ in SODIUM CHLORIDE 0.9% 500 ML IV ONE (08:30)
[2016-11-09] MEDS ORDERED: ONDANSETRON 2MG/ML, 2ML IVPush PRN (09:00)
[2016-11-09] MEDS: TEMPLATE NON-FORMULARY MED. (Ambrisentan (Letairis**) 10 MG) HOMEMEDPO SCH (09:00)
[2016-11-09] MEDS: POTASSIUM CHLORIDE 20 MEQ TAB.ER.PRT PO SCH ×2 (09:32→16:10)
[2016-11-09] MEDS: ONDANSETRON 2MG/ML, 2ML IVPush PRN ×2 (09:35→21:15)
[2016-11-09] MEDS: DULOXETINE 30 MG CAPSULE.DR PO SCH ×2 (09:38→21:14)
[2016-11-09 10:03] LABS: BLOOD UREA NITROGEN 16 mg/dL (7-18)
[2016-11-09] MEDS: CHOLECALCIFEROL 400 UNITS TABLET PO SCH (10:38)
[2016-11-09] MEDS: FUROSEMIDE 40 MG TABLET PO SCH ×2 (10:38→21:14)
[2016-11-09] MEDS: FERROUS SULFATE 325 MG TABLET PO SCH (10:38)
[2016-11-09] MEDS: GABAPENTIN 400 MG CAPSULE PO SCH ×3 (10:38→23:03)
[2016-11-09 12:19] VITALS: BP 94/56
[2016-11-09 19:45] VITALS: BP 97/59
[2016-11-09] MEDS: PHENOBARBITAL 30 MG TABLET PO SCH (23:03)
[2016-11-09] MEDS: PHENOBARBITAL 100 MG TABLET PO SCH (23:03)
[2016-11-09] MEDS: ENOXAPARIN 40 MG/0.4 ML SQ SCH (23:04)
[2016-11-10] MEDS: OXYcodone IR 5MG TABLET PO PRN ×5 (01:04→21:36)
[2016-11-10] MEDS: ONDANSETRON ODT 4 MG PO PRN ×2 (01:26→10:04)
[2016-11-10 01:50] VITALS: BP 108/57
[2016-11-10] MEDS: LACTOBACILLUS CHEW TABLET PO SCH ×4 (05:00→21:00)
[2016-11-10] MEDS: GUAIFENESIN 200 MG TABLET PO SCH ×4 (05:02→21:39)
[2016-11-10] MEDS: ONDANSETRON 2MG/ML, 2ML IVPush PRN ×2 (05:13→16:35)
[2016-11-10] MEDS: ALBUTEROL SULFATE 2.5 MG/3 ML NPPB SCH ×4 (06:37→19:24)
[2016-11-10] MEDS ORDERED: POTASSIUM CHLORIDE 40 MEQ in SODIUM CHLORIDE 0.9% 500 ML IV ONE (07:00)
[2016-11-10 07:59] VITALS: BP 89/51
[2016-11-10] MEDS: TEMPLATE NON-FORMULARY MED. (Ambrisentan (Letairis**) 10 MG) HOMEMEDPO SCH (09:00)
[2016-11-10] MEDS: FERROUS SULFATE 325 MG TABLET PO SCH (09:00)
[2016-11-10] MEDS: GABAPENTIN 400 MG CAPSULE PO SCH ×2 (10:08→23:11)
[2016-11-10] MEDS: POTASSIUM CHLORIDE 20 MEQ TAB.ER.PRT PO SCH ×2 (10:08→16:42)
[2016-11-10] MEDS: DULOXETINE 30 MG CAPSULE.DR PO SCH ×2 (10:08→21:38)
[2016-11-10] MEDS: ACETAMINOPHEN 325 MG TABLET PO PRN ×2 (11:54→17:40)
[2016-11-10] MEDS: PANTOPRAZOLE 20MG TABLET PO SCH ×2 (11:55→23:30)
[2016-11-10] MEDS: CHOLECALCIFEROL 400 UNITS TABLET PO SCH (11:56)
[2016-11-10] MEDS: METOLAZONE 5 MG TABLET PO SCH (11:58)
[2016-11-10] MEDS: FUROSEMIDE 40 MG TABLET PO SCH ×2 (11:58→21:25)
[2016-11-10 13:49] VITALS: BP 96/49
[2016-11-10] MEDS ORDERED: GABAPENTIN 400 MG CAPSULE PO SCH (15:00)
[2016-11-10] MEDS: GABAPENTIN 300 MG CAPSULE PO SCH (17:40)
[2016-11-10 19:38] VITALS: BP 107/63
[2016-11-10] MEDS: ALBUTEROL SULFATE 2.5 MG/3 ML NPPB PRN (22:40)
[2016-11-10] MEDS: PHENOBARBITAL 30 MG TABLET PO SCH (23:11)
[2016-11-10] MEDS: PHENOBARBITAL 100 MG TABLET PO SCH (23:11)
[2016-11-10] MEDS: ENOXAPARIN 40 MG/0.4 ML SQ SCH (23:12)
[2016-11-11 00:45] VITALS: BP 121/85
[2016-11-11] MEDS: OXYcodone IR 5MG TABLET PO PRN ×6 (01:10→22:42)
[2016-11-11] MEDS: ONDANSETRON 2MG/ML, 2ML IVPush PRN ×3 (01:10→20:14)
[2016-11-11] MEDS: ACETAMINOPHEN 325 MG TABLET PO PRN ×2 (02:47→08:46)
[2016-11-11] MEDS: ONDANSETRON ODT 4 MG PO PRN ×2 (05:29→14:07)
[2016-11-11] MEDS: LACTOBACILLUS CHEW TABLET PO SCH ×4 (05:30→22:43)
[2016-11-11] MEDS: GUAIFENESIN 200 MG TABLET PO SCH ×4 (05:30→20:31)
[2016-11-11 06:33] LABS: BLOOD UREA NITROGEN 15 mg/dL (7-18)
[2016-11-11 06:49] VITALS: BP 120/63
[2016-11-11] MEDS: ALBUTEROL SULFATE 2.5 MG/3 ML NPPB SCH ×4 (06:52→20:00)
[2016-11-11] MEDS ORDERED: POTASSIUM CHLORIDE 40 MEQ in SODIUM CHLORIDE 0.9% 500 ML IV ONE (07:00)
[2016-11-11] MEDS: FERROUS SULFATE 325 MG TABLET PO SCH (07:52)
[2016-11-11] MEDS: DULOXETINE 30 MG CAPSULE.DR PO SCH ×2 (07:52→20:31)
[2016-11-11] MEDS: POTASSIUM CHLORIDE 20 MEQ TAB.ER.PRT PO SCH ×2 (07:53→16:04)
[2016-11-11] MEDS: GABAPENTIN 300 MG CAPSULE PO SCH ×2 (08:46→14:07)
[2016-11-11] MEDS: CHOLECALCIFEROL 400 UNITS TABLET PO SCH (08:46)
[2016-11-11] MEDS: TEMPLATE NON-FORMULARY MED. (Ambrisentan (Letairis**) 10 MG) HOMEMEDPO SCH (08:46)
[2016-11-11] MEDS: FUROSEMIDE 20 MG TABLET PO SCH ×2 (09:41→16:04)
[2016-11-11] MEDS: PANTOPRAZOLE 20MG TABLET PO SCH ×2 (12:36→20:31)
[2016-11-11 13:00] VITALS: BP 113/64
[2016-11-11] MEDS: TETRACYCLINE HCL 250 MG CAPSULE PO SCH ×2 (16:04→20:32)
[2016-11-11 20:10] VITALS: BP 126/57
[2016-11-11] MEDS: ENOXAPARIN 40 MG/0.4 ML SQ SCH (20:17)
[2016-11-11] MEDS: PHENOBARBITAL 100 MG TABLET PO SCH (22:43)
[2016-11-11] MEDS: PHENOBARBITAL 30 MG TABLET PO SCH (22:43)
[2016-11-11] MEDS: GABAPENTIN 400 MG CAPSULE PO SCH (22:43)
[2016-11-12 00:21] VITALS: BP 116/67
[2016-11-12] MEDS: ONDANSETRON ODT 4 MG PO PRN ×2 (00:50→08:57)
[2016-11-12] MEDS: ACETAMINOPHEN 325 MG TABLET PO PRN (02:28)
[2016-11-12] MEDS: ALBUTEROL SULFATE 2.5 MG/3 ML NPPB PRN (02:38)
[2016-11-12] MEDS: OXYcodone IR 5MG TABLET PO PRN ×3 (03:35→12:59)
[2016-11-12] MEDS: ONDANSETRON 2MG/ML, 2ML IVPush PRN ×2 (05:16→12:59)
[2016-11-12] MEDS: GUAIFENESIN 200 MG TABLET PO SCH ×2 (05:30→10:42)
[2016-11-12] MEDS: LACTOBACILLUS CHEW TABLET PO SCH ×2 (05:30→10:41)
[2016-11-12] MEDS: TETRACYCLINE HCL 250 MG CAPSULE PO SCH ×2 (05:31→10:42)
[2016-11-12 05:33] LABS: BLOOD UREA NITROGEN 17 mg/dL (7-18)
[2016-11-12] MEDS: ALBUTEROL SULFATE 2.5 MG/3 ML NPPB SCH ×2 (07:00→10:55)
[2016-11-12 07:49] VITALS: BP 115/57
[2016-11-12] MEDS: FUROSEMIDE 20 MG TABLET PO SCH (08:56)
[2016-11-12] MEDS: GABAPENTIN 300 MG CAPSULE PO SCH (08:56)
[2016-11-12] MEDS: POTASSIUM CHLORIDE 20 MEQ TAB.ER.PRT PO SCH (08:57)
[2016-11-12] MEDS: DULOXETINE 30 MG CAPSULE.DR PO SCH (08:57)
[2016-11-12] MEDS: TEMPLATE NON-FORMULARY MED. (Ambrisentan (Letairis**) 10 MG) HOMEMEDPO SCH (09:00)
[2016-11-12] MEDS: CHOLECALCIFEROL 400 UNITS TABLET PO SCH (10:42)
[2016-11-12] MEDS: FERROUS SULFATE 325 MG TABLET PO SCH (10:42)
[2016-11-12] MEDS: PANTOPRAZOLE 20MG TABLET PO SCH (10:42)
[2016-11-12] MEDS: METOLAZONE 5 MG TABLET PO SCH (10:42)
[2016-11-12] MEDS ORDERED: FURO20TA3 PO (12:18)
[2016-11-12] MEDS ORDERED: POTA20TA6 PO (12:18)
[2016-11-12] MEDS ORDERED: TETR250C3 PO (12:18)
[2016-11-12] MEDS ORDERED: DULO30CA2 PO ×2 (12:18)
[2016-11-12] MEDS ORDERED: OXYC5TAB3 PO (12:18)
[2016-11-12] MEDS ORDERED: LORazepam 1MG TABLET PO ONE (12:30)
== END 2016-11-12 15:34 | disposition home health service (06) | DRG 177 ==
LOC: ED 23:40 → EDIP 23:43 → 3NE 10-23 01:32
PROVIDERS: ADMIT Internal Medicine; ATTEND Internal Medicine
DX: J15.212 Pneumonia due to Methicillin resistant Staphylococcus aureus (principal); N17.0 Acute kidney failure with tubular necrosis; J96.21 Acute and chronic respiratory failure with hypoxia; J44.0 Chronic obstructive pulmonary disease with (acute) lower respiratory infection; J84.9 Interstitial pulmonary disease, unspecified; I13.0 Hypertensive heart and chronic kidney disease with heart failure and stage 1 through stage 4 chronic kidney disease, or unspecified chronic kidney disease; Y82.8 Other medical devices associated with adverse incidents; M34.1 CR(E)ST syndrome; I27.2 Other secondary pulmonary hypertension; G40.909 Epilepsy, unspecified, not intractable, without status epilepticus; R19.7 Diarrhea, unspecified; F41.9 Anxiety disorder, unspecified; E87.6 Hypokalemia; F41.1 Generalized anxiety disorder; F43.21 Adjustment disorder with depressed mood; D89.9 Disorder involving the immune mechanism, unspecified; G89.4 Chronic pain syndrome; F11.90 Opioid use, unspecified, uncomplicated; I25.10 Atherosclerotic heart disease of native coronary artery without angina pectoris; I50.9 Heart failure, unspecified; I95.89 Other hypotension; K21.9 Gastro-esophageal reflux disease without esophagitis; N18.9 Chronic kidney disease, unspecified; G62.9 Polyneuropathy, unspecified; M54.9 Dorsalgia, unspecified; R13.10 Dysphagia, unspecified; Z82.49 Family history of ischemic heart disease and other diseases of the circulatory system; Z87.01 Personal history of pneumonia (recurrent); Z91.14 Patient's other noncompliance with medication regimen; Z99.81 Dependence on supplemental oxygen; Z81.8 Family history of other mental and behavioral disorders; Z82.3 Family history of stroke; Z79.4 Long term (current) use of insulin
CPT/HCPCS: 36415; 71010; 71250; 80048; 80053; 80202; 82040; 83735; 83880; 84100; 84132; 84484; 85025; 85651; 86140; 87040; 87070; 87077; 87186; 87205; 93005; 94640; J1644; J1650; J1940; J2405; J2543; J3370; J3480; J7613; Q0162; J7040; J7050

== ENCOUNTER 2016-11-23 09:55 | Inpatient (IN) | payer MEDICARE ==
[~2016-11-23] VITALS: Ht 167.6 cm; Wt 75.3 kg
[~2016-11-23 09:55] MED LIST changes: -CEFD300C2 PO; +CEFD300C37 PO; +DULO30CA2 PO; +FURO20TA3 PO; +OXYC5TAB3 PO; +POTA20TA6 PO; +TETR250C3 PO
[2016-11-23] MEDS ORDERED: SODIUM CHLORIDE 0.9% 1,000 ML IV ONE (10:07)
[2016-11-23] MEDS ORDERED: SODIUM CHLORIDE 0.9% 1,000ML IVBOLUS ONE (10:30)
[2016-11-23] MEDS ORDERED: SODIUM CHLORIDE FLUSH 10ML SYR IVF ONE (10:30)
[2016-11-23] MEDS ORDERED: ONDANSETRON 2MG/ML, 2ML IVPush ONE (10:30)
[2016-11-23] MEDS ORDERED: ONDANSETRON 2MG/ML, 2ML ONE (10:46)
[2016-11-23] MEDS ORDERED: HYDROmorphone 1 MG/ML, 1ML ONE ×2 (10:46→11:50)
[2016-11-23] MEDS: HYDROmorphone 1 MG/ML, 1ML IVPush PRN ×2 (10:49→11:54)
[2016-11-23 11:00] LABS: ASPARTATE AMINO TRANSFERASE 17 U/L (15-37); BLOOD UREA NITROGEN 15 mg/dL (7-18)
[2016-11-23] MEDS ORDERED: PIPERACILLIN/TAZO/PMX 3.375GM 50 ML IV ONE (11:00)
[2016-11-23] MEDS ORDERED: PIPERACILLIN/TAZO/PMX 3.375GM 50 ML ONE (11:27)
[2016-11-23] MEDS ORDERED: PROCHLORPERAZINE 5 MG/ML, 2ML IVPush ONE (12:30)
[2016-11-23] MEDS ORDERED: PROCHLORPERAZINE 5 MG/ML, 2ML ONE (12:31)
[2016-11-23] MEDS ORDERED: NS + 20MEQ KCL 1,000 ML IV SCH (12:34)
[2016-11-23] MEDS ORDERED: GABA-827 PO (12:50)
[2016-11-23] MEDS ORDERED: OXYcodone IR 5MG TABLET PO PRN (13:00)
[2016-11-23] MEDS ORDERED: CEFTRIAXONE PMX 1GM/50ML 50 ML IV SCH (13:00)
[2016-11-23] MEDS ORDERED: DOCUSATE 100 MG CAPSULE PO PRN (13:00)
[2016-11-23] MEDS ORDERED: POLYETHYLENE GLYCOL 17 GM PACKET PO PRN (13:00)
[2016-11-23] MEDS: TEMPLATE NON-FORMULARY MED. (Ambrisentan (Letairis**) 10 MG) HOMEMEDPO SCH (13:00)
[2016-11-23] MEDS: [UNRECOGNIZED DRUG - OTHER] HOMEMEDPO SCH (13:00)
[2016-11-23] MEDS ORDERED: ACETAMINOPHEN 325 MG TABLET PO PRN (13:00)
[2016-11-23] MEDS ORDERED: VANCOMYCIN PER PHARMACY MC PRN (13:00)
[2016-11-23] MEDS ORDERED: PHARMACOKINETIC CONSULTATION MC ONE (13:30)
[2016-11-23] MEDS ORDERED: ALBUTEROL SULFATE 2.5 MG/3 ML NPPB PRN (13:30)
[2016-11-23] MEDS ORDERED: PHARMACOKINETIC MONITORING MC PRN (13:30)
[2016-11-23 14:05] VITALS: BP 122/75
[2016-11-23] MEDS: MORPHINE SULFATE 4 MG/ML, 1ML IVPush PRN ×3 (14:25→23:09)
[2016-11-23] MEDS: ONDANSETRON 2MG/ML, 2ML IVP PRN ×2 (14:25→21:46)
[2016-11-23] MEDS: ENOXAPARIN 40 MG/0.4 ML SQ SCH (14:27)
[2016-11-23] MEDS: METOCLOPRAMIDE 5 MG/ML, 2ML IVPush SCH ×2 (14:27→20:56)
[2016-11-23] MEDS: METOLAZONE 5 MG TABLET PO SCH (14:28)
[2016-11-23] MEDS: DULOXETINE 30 MG CAPSULE.DR PO SCH ×2 (14:28→23:18)
[2016-11-23] MEDS: VANCOMYCIN 1,400 MG in SODIUM CHLORIDE 0.9% 250 ML IV SCH (16:38)
[2016-11-23] MEDS: PROMETHAZINE 25 MG/ML, 1ML IM PRN ×2 (16:38→19:45)
[2016-11-23 16:43] VITALS: BP 122/77
[2016-11-23] MEDS: FUROSEMIDE 20 MG TABLET PO SCH (17:00)
[2016-11-23 17:10] LABS: PATH.CAST-FLAG NOT PRESENT; SPERM-FLAG NOT PRESENT; SRC-FLAG NOT PRESENT; XTAL-FLAG NOT PRESENT; YLC-FLAG NOT PRESENT
[2016-11-23] MEDS: ALBUTEROL SULFATE 2.5 MG/3 ML NPPB SCH ×2 (19:23→23:28)
[2016-11-23 19:36] VITALS: BP 123/70
[2016-11-23] MEDS ORDERED: PHENOBARBITAL PO SCH (21:00)
[2016-11-23] MEDS: PHENOBARBITAL 100 MG TABLET PO SCH (21:05)
[2016-11-23] MEDS: DRONABINOL 5 MG CAPSULE PO SCH (21:05)
[2016-11-23] MEDS: PHENOBARBITAL 30 MG TABLET PO SCH (21:05)
[2016-11-23] MEDS: GABAPENTIN 400 MG CAPSULE PO SCH (23:18)
[2016-11-24] MEDS: MAGNESIUM HYDROXIDE 8%, 30ML UDC PO PRN (00:40)
[2016-11-24] MEDS: PROMETHAZINE 25 MG/ML, 1ML IM PRN ×2 (01:51→12:40)
[2016-11-24] MEDS: METOCLOPRAMIDE 5 MG/ML, 2ML IVPush SCH ×4 (02:37→21:32)
[2016-11-24 02:52] VITALS: BP 132/70
[2016-11-24] MEDS: ONDANSETRON 2MG/ML, 2ML IVP PRN ×2 (04:44→21:26)
[2016-11-24] MEDS: VANCOMYCIN 1,400 MG in SODIUM CHLORIDE 0.9% 250 ML IV SCH (04:44)
[2016-11-24] MEDS: MORPHINE SULFATE 4 MG/ML, 1ML IVPush PRN ×4 (04:45→21:29)
[2016-11-24 06:05] LABS: BLOOD UREA NITROGEN 10 mg/dL (7-18)
[2016-11-24] MEDS: ALBUTEROL SULFATE 2.5 MG/3 ML NPPB SCH ×5 (07:10→23:35)
[2016-11-24] MEDS: FUROSEMIDE 20 MG TABLET PO SCH ×2 (08:00→17:02)
[2016-11-24] MEDS ORDERED: POTASSIUM CHLORIDE 20 MEQ TAB.ER.PRT PO SCH (08:00)
[2016-11-24 08:16] VITALS: BP 138/76
[2016-11-24] MEDS: DULOXETINE 30 MG CAPSULE.DR PO SCH ×2 (09:00→21:38)
[2016-11-24] MEDS: FERROUS SULFATE 325 MG TABLET PO SCH (09:00)
[2016-11-24] MEDS: METOLAZONE 5 MG TABLET PO SCH (09:00)
[2016-11-24] MEDS ORDERED: FLUTICASONE/VILANTEROL 100-25MCG/INH INH SCH (09:00)
[2016-11-24] MEDS: ONDANSETRON 2MG/ML, 2ML IVPush PRN ×2 (09:50→14:13)
[2016-11-24] MEDS: DRONABINOL 5 MG CAPSULE PO SCH ×2 (10:04→21:19)
[2016-11-24] MEDS: [UNRECOGNIZED DRUG - OTHER] HOMEMEDPO SCH (10:05)
[2016-11-24] MEDS: TEMPLATE NON-FORMULARY MED. (Ambrisentan (Letairis**) 10 MG) HOMEMEDPO SCH (10:05)
[2016-11-24] MEDS: PIPERACILLIN/TAZO/PMX 3.375GM 50 ML IV SCH ×3 (10:22→21:38)
[2016-11-24 12:30] VITALS: BP 123/69
[2016-11-24] MEDS: FLUTICASONE NASAL SPRAY 16GM NAS SCH (12:30)
[2016-11-24] MEDS: ENOXAPARIN 40 MG/0.4 ML SQ SCH (14:08)
[2016-11-24] MEDS: POTASSIUM CHLORIDE 40 MEQ in SODIUM CHLORIDE 0.9% 500 ML IV SCH (17:00)
[2016-11-24 19:27] VITALS: BP 136/73
[2016-11-24] MEDS: PHENOBARBITAL 100 MG TABLET PO SCH (21:20)
[2016-11-24] MEDS: PHENOBARBITAL 30 MG TABLET PO SCH (21:20)
[2016-11-24] MEDS: GABAPENTIN 400 MG CAPSULE PO SCH (21:35)
[2016-11-25] MEDS: VANCOMYCIN 1,400 MG in SODIUM CHLORIDE 0.9% 250 ML IV SCH ×2 (00:04→09:00)
[2016-11-25 01:55] VITALS: BP 135/77
[2016-11-25] MEDS: METOCLOPRAMIDE 5 MG/ML, 2ML IVPush SCH ×4 (03:32→22:02)
[2016-11-25] MEDS: PIPERACILLIN/TAZO/PMX 3.375GM 50 ML IV SCH ×2 (03:32→10:20)
[2016-11-25 06:12] LABS: BLOOD UREA NITROGEN 9 mg/dL (7-18)
[2016-11-25] MEDS: ALBUTEROL SULFATE 2.5 MG/3 ML NPPB SCH ×5 (07:40→22:20)
[2016-11-25] MEDS: FUROSEMIDE 20 MG TABLET PO SCH ×2 (08:00→16:48)
[2016-11-25 08:13] VITALS: BP 139/80
[2016-11-25] MEDS: ONDANSETRON 2MG/ML, 2ML IVPush PRN ×2 (08:14→12:27)
[2016-11-25] MEDS: METOLAZONE 5 MG TABLET PO SCH (09:00)
[2016-11-25] MEDS: FLUTICASONE NASAL SPRAY 16GM NAS SCH ×3 (09:00→20:21)
[2016-11-25] MEDS: FERROUS SULFATE 325 MG TABLET PO SCH (09:00)
[2016-11-25] MEDS: [UNRECOGNIZED DRUG - OTHER] HOMEMEDPO SCH (10:18)
[2016-11-25] MEDS: DRONABINOL 5 MG CAPSULE PO SCH ×2 (10:18→20:19)
[2016-11-25] MEDS: TEMPLATE NON-FORMULARY MED. (Ambrisentan (Letairis**) 10 MG) HOMEMEDPO SCH (10:18)
[2016-11-25] MEDS: DULOXETINE 30 MG CAPSULE.DR PO SCH ×2 (10:19→20:20)
[2016-11-25] MEDS: ENOXAPARIN 40 MG/0.4 ML SQ SCH (13:00)
[2016-11-25 13:32] VITALS: BP 129/78
[2016-11-25 18:37] VITALS: BP 121/73
[2016-11-25] MEDS: ONDANSETRON 2MG/ML, 2ML IVP PRN (20:15)
[2016-11-25] MEDS: PHENOBARBITAL 30 MG TABLET PO SCH (20:19)
[2016-11-25] MEDS: PHENOBARBITAL 100 MG TABLET PO SCH (20:19)
[2016-11-25] MEDS: GABAPENTIN 400 MG CAPSULE PO SCH (20:20)
[2016-11-26 02:00] VITALS: BP 123/77
[2016-11-26] MEDS: ONDANSETRON 2MG/ML, 2ML IVP PRN ×2 (02:30→15:46)
[2016-11-26] MEDS: METOCLOPRAMIDE 5 MG/ML, 2ML IVPush SCH ×4 (03:55→21:21)
[2016-11-26] MEDS: PROMETHAZINE 25 MG/ML, 1ML IM PRN ×2 (05:43→13:31)
[2016-11-26 06:38] LABS: BLOOD UREA NITROGEN 7 mg/dL (7-18)
[2016-11-26] MEDS: ONDANSETRON 2MG/ML, 2ML IVPush PRN ×3 (06:43→22:46)
[2016-11-26 07:05] VITALS: BP 132/78
[2016-11-26] MEDS: ALBUTEROL SULFATE 2.5 MG/3 ML NPPB SCH ×5 (07:50→21:51)
[2016-11-26] MEDS: POTASSIUM CHLORIDE 20 MEQ TAB.ER.PRT PO SCH ×2 (09:15→18:20)
[2016-11-26] MEDS: FUROSEMIDE 20 MG TABLET PO SCH ×2 (09:17→18:20)
[2016-11-26] MEDS: TEMPLATE NON-FORMULARY MED. (Ambrisentan (Letairis**) 10 MG) HOMEMEDPO SCH (09:18)
[2016-11-26] MEDS: [UNRECOGNIZED DRUG - OTHER] HOMEMEDPO SCH (09:18)
[2016-11-26] MEDS: METOLAZONE 5 MG TABLET PO SCH (11:25)
[2016-11-26] MEDS: FERROUS SULFATE 325 MG TABLET PO SCH (11:26)
[2016-11-26] MEDS: DULOXETINE 30 MG CAPSULE.DR PO SCH ×2 (11:26→21:25)
[2016-11-26] MEDS: FLUTICASONE NASAL SPRAY 16GM NAS SCH ×2 (11:27→21:21)
[2016-11-26] MEDS: DRONABINOL 5 MG CAPSULE PO SCH ×2 (12:12→21:22)
[2016-11-26 12:20] VITALS: BP 116/69
[2016-11-26] MEDS: ENOXAPARIN 40 MG/0.4 ML SQ SCH (13:30)
[2016-11-26] MEDS: CYCLOPHOSPHAMIDE 25 MG CAPSULE PO SCH (13:33)
[2016-11-26] MEDS ORDERED: OMNIPAQUE 350 MG/ML, 100ML BOTTLE ONE (16:22)
[2016-11-26 19:36] VITALS: BP 109/68
[2016-11-26] MEDS: GABAPENTIN 100 MG CAPSULE PO SCH (21:00)
[2016-11-26] MEDS: PHENOBARBITAL 30 MG TABLET PO SCH (21:22)
[2016-11-26] MEDS: PHENOBARBITAL 100 MG TABLET PO SCH (21:23)
[2016-11-26] MEDS: GABAPENTIN 400 MG CAPSULE PO SCH (21:25)
[2016-11-26] MEDS ORDERED: TEMAZEPAM 15 MG CAPSULE PO PRN (22:00)
[2016-11-27] MEDS ORDERED: CYCLOPHOSPHAMIDE 25 MG MC SCH (02:00)
[2016-11-27 05:18] VITALS: BP 103/67
[2016-11-27] MEDS: METOCLOPRAMIDE 5 MG/ML, 2ML IVPush SCH ×4 (05:22→21:28)
[2016-11-27] MEDS: ALBUTEROL SULFATE 2.5 MG/3 ML NPPB SCH ×5 (06:23→22:00)
[2016-11-27 06:42] LABS: ASPARTATE AMINO TRANSFERASE 63 U/L (15-37); BLOOD UREA NITROGEN 10 mg/dL (7-18)
[2016-11-27 07:00] VITALS: BP 109/71
[2016-11-27] MEDS: POTASSIUM CHLORIDE 20 MEQ TAB.ER.PRT PO SCH ×2 (07:50→16:26)
[2016-11-27] MEDS: [UNRECOGNIZED DRUG - OTHER] HOMEMEDPO SCH (09:00)
[2016-11-27] MEDS: CYCLOPHOSPHAMIDE 25 MG CAPSULE PO SCH (09:00)
[2016-11-27] MEDS: TEMPLATE NON-FORMULARY MED. (Ambrisentan (Letairis**) 10 MG) HOMEMEDPO SCH (09:00)
[2016-11-27] MEDS: ONDANSETRON 2MG/ML, 2ML IVPush PRN ×4 (10:04→22:52)
[2016-11-27] MEDS: FLUTICASONE NASAL SPRAY 16GM NAS SCH ×2 (10:04→21:38)
[2016-11-27] MEDS: DULOXETINE 30 MG CAPSULE.DR PO SCH ×2 (10:34→21:30)
[2016-11-27] MEDS: DRONABINOL 5 MG CAPSULE PO SCH ×3 (10:34→21:48)
[2016-11-27] MEDS: FUROSEMIDE 20 MG TABLET PO SCH ×2 (11:22→16:26)
[2016-11-27] MEDS: FERROUS SULFATE 325 MG TABLET PO SCH (11:23)
[2016-11-27] MEDS: METOLAZONE 5 MG TABLET PO SCH (11:23)
[2016-11-27] MEDS: GABAPENTIN 100 MG CAPSULE PO SCH ×2 (11:28→16:25)
[2016-11-27] MEDS ORDERED: CYCLOPHOSPHAMIDE 25 MG CAPSULE PO ONE (13:00)
[2016-11-27 13:23] VITALS: BP 105/69
[2016-11-27] MEDS ORDERED: CYCLOPHOSPHAMIDE 50 MG CAP PO ONE (13:30)
[2016-11-27] MEDS: ENOXAPARIN 40 MG/0.4 ML SQ SCH (14:00)
[2016-11-27] MEDS ORDERED: POTASSIUM CHLORIDE 40 MEQ in SODIUM CHLORIDE 0.9% 500 ML IV ONE (14:30)
[2016-11-27 21:03] VITALS: BP 97/67
[2016-11-27] MEDS: GABAPENTIN 400 MG CAPSULE PO SCH (21:31)
[2016-11-27] MEDS: TEMAZEPAM 15 MG CAPSULE PO SCH (21:35)
[2016-11-27] MEDS: PHENOBARBITAL 30 MG TABLET PO SCH (21:35)
[2016-11-27] MEDS: PHENOBARBITAL 100 MG TABLET PO SCH (21:36)
[2016-11-28] MEDS: METOCLOPRAMIDE 5 MG/ML, 2ML IVPush SCH ×4 (03:45→22:30)
[2016-11-28 06:13] VITALS: BP 100/69
[2016-11-28] MEDS: ONDANSETRON 2MG/ML, 2ML IVPush PRN ×5 (06:15→23:37)
[2016-11-28] MEDS: ALBUTEROL SULFATE 2.5 MG/3 ML NPPB SCH ×5 (07:05→21:47)
[2016-11-28] MEDS: DRONABINOL 5 MG CAPSULE PO SCH ×2 (09:16→20:49)
[2016-11-28] MEDS: DULOXETINE 30 MG CAPSULE.DR PO SCH ×2 (09:16→20:52)
[2016-11-28] MEDS: POTASSIUM CHLORIDE 20 MEQ TAB.ER.PRT PO SCH (09:17)
[2016-11-28] MEDS: FERROUS SULFATE 325 MG TABLET PO SCH (09:18)
[2016-11-28] MEDS: METOLAZONE 5 MG TABLET PO SCH (09:18)
[2016-11-28] MEDS: FUROSEMIDE 20 MG TABLET PO SCH ×2 (09:18→16:27)
[2016-11-28] MEDS: GABAPENTIN 100 MG CAPSULE PO SCH ×2 (09:18→21:00)
[2016-11-28] MEDS: TEMPLATE NON-FORMULARY MED. (Ambrisentan (Letairis**) 10 MG) HOMEMEDPO SCH (09:19)
[2016-11-28] MEDS: [UNRECOGNIZED DRUG - OTHER] HOMEMEDPO SCH (09:19)
[2016-11-28] MEDS: FLUTICASONE NASAL SPRAY 16GM NAS SCH ×2 (09:19→20:47)
[2016-11-28 11:51] LABS: BLOOD UREA NITROGEN 20 mg/dL (7-18)
[2016-11-28] MEDS: PROMETHAZINE 25 MG/ML, 1ML IM PRN (11:54)
[2016-11-28] MEDS: MAGNESIUM HYDROXIDE 8%, 30ML UDC PO PRN (12:00)
[2016-11-28] MEDS: ENOXAPARIN 40 MG/0.4 ML SQ SCH (12:00)
[2016-11-28 14:32] VITALS: BP 99/69
[2016-11-28 19:12] VITALS: BP 101/65
[2016-11-28] MEDS: TEMAZEPAM 15 MG CAPSULE PO SCH (20:47)
[2016-11-28] MEDS: GABAPENTIN 400 MG CAPSULE PO SCH (20:48)
[2016-11-28] MEDS: PHENOBARBITAL 100 MG TABLET PO SCH (20:52)
[2016-11-28] MEDS: PHENOBARBITAL 30 MG TABLET PO SCH (20:52)
[2016-11-29 00:56] VITALS: BP 100/65
[2016-11-29] MEDS: ALBUTEROL SULFATE 2.5 MG/3 ML NPPB SCH ×6 (01:34→23:10)
[2016-11-29] MEDS: PROMETHAZINE 25 MG/ML, 1ML IM PRN (02:34)
[2016-11-29] MEDS: METOCLOPRAMIDE 5 MG/ML, 2ML IVPush SCH ×4 (04:06→21:24)
[2016-11-29 07:15] VITALS: BP 103/65
[2016-11-29] MEDS: ONDANSETRON 2MG/ML, 2ML IVPush PRN ×3 (07:59→23:27)
[2016-11-29] MEDS: FERROUS SULFATE 325 MG TABLET PO SCH (09:00)
[2016-11-29] MEDS: [UNRECOGNIZED DRUG - OTHER] HOMEMEDPO SCH (09:00)
[2016-11-29] MEDS: TEMPLATE NON-FORMULARY MED. (Ambrisentan (Letairis**) 10 MG) HOMEMEDPO SCH (09:00)
[2016-11-29] MEDS: DULOXETINE 30 MG CAPSULE.DR PO SCH ×2 (09:26→21:25)
[2016-11-29] MEDS: FLUTICASONE NASAL SPRAY 16GM NAS SCH ×2 (09:27→21:24)
[2016-11-29] MEDS: FUROSEMIDE 20 MG TABLET PO SCH ×2 (09:27→21:31)
[2016-11-29] MEDS: DRONABINOL 5 MG CAPSULE PO SCH ×2 (09:28→21:31)
[2016-11-29] MEDS: METOLAZONE 5 MG TABLET PO SCH (09:33)
[2016-11-29] MEDS: GABAPENTIN 100 MG CAPSULE PO SCH ×2 (12:08→18:44)
[2016-11-29] MEDS: ENOXAPARIN 40 MG/0.4 ML SQ SCH (12:08)
[2016-11-29 12:59] VITALS: BP 106/64
[2016-11-29] MEDS ORDERED: LOPERAMIDE 2 MG CAPSULE PO PRN (17:30)
[2016-11-29 18:27] VITALS: BP 109/75
[2016-11-29] MEDS: GABAPENTIN 400 MG CAPSULE PO SCH (21:25)
[2016-11-29] MEDS: TEMAZEPAM 15 MG CAPSULE PO SCH (21:25)
[2016-11-29] MEDS: PHENOBARBITAL 100 MG TABLET PO SCH (21:31)
[2016-11-29] MEDS: PHENOBARBITAL 30 MG TABLET PO SCH (21:31)
[2016-11-30] MEDS: METOCLOPRAMIDE 5 MG/ML, 2ML IVPush SCH ×4 (03:48→22:21)
[2016-11-30 04:39] LABS: BLOOD UREA NITROGEN 16 mg/dL (7-18)
[2016-11-30 05:58] VITALS: BP 105/72
[2016-11-30] MEDS: ALBUTEROL SULFATE 2.5 MG/3 ML NPPB SCH ×5 (06:00→23:10)
[2016-11-30] MEDS ORDERED: POTASSIUM CHLORIDE 20 MEQ TAB.ER.PRT PO ONE (07:00)
[2016-11-30] MEDS: FUROSEMIDE 20 MG TABLET PO SCH ×2 (08:00→17:00)
[2016-11-30] MEDS: METOLAZONE 5 MG TABLET PO SCH (09:00)
[2016-11-30] MEDS: FERROUS SULFATE 325 MG TABLET PO SCH (09:00)
[2016-11-30 09:47] VITALS: BP 112/72
[2016-11-30] MEDS: DRONABINOL 5 MG CAPSULE PO SCH ×2 (10:00→21:09)
[2016-11-30] MEDS: TEMPLATE NON-FORMULARY MED. (Ambrisentan (Letairis**) 10 MG) HOMEMEDPO SCH (10:05)
[2016-11-30] MEDS: FLUTICASONE NASAL SPRAY 16GM NAS SCH ×2 (10:06→22:22)
[2016-11-30] MEDS: [UNRECOGNIZED DRUG - OTHER] HOMEMEDPO SCH (10:06)
[2016-11-30] MEDS: ONDANSETRON 2MG/ML, 2ML IVPush PRN ×2 (12:15→20:16)
[2016-11-30] MEDS: GABAPENTIN 300 MG CAPSULE PO SCH ×2 (12:15→21:22)
[2016-11-30] MEDS: DULOXETINE 30 MG CAPSULE.DR PO SCH ×2 (12:17→22:22)
[2016-11-30 13:52] VITALS: BP 121/78
[2016-11-30] MEDS: ENOXAPARIN 40 MG/0.4 ML SQ SCH (15:26)
[2016-11-30 20:28] VITALS: BP 120/73
[2016-11-30] MEDS: PHENOBARBITAL 30 MG TABLET PO SCH (21:09)
[2016-11-30] MEDS: PHENOBARBITAL 100 MG TABLET PO SCH (21:09)
[2016-11-30] MEDS: GABAPENTIN 400 MG CAPSULE PO SCH (21:20)
[2016-11-30] MEDS: TEMAZEPAM 15 MG CAPSULE PO SCH (22:21)
[2016-12-01 04:07] VITALS: BP 92/48
[2016-12-01 04:12] VITALS: BP 106/70
[2016-12-01] MEDS: METOCLOPRAMIDE 5 MG/ML, 2ML IVPush SCH (04:56)
[2016-12-01 05:51] LABS: BLOOD UREA NITROGEN 18 mg/dL (7-18)
[2016-12-01] MEDS: ALBUTEROL SULFATE 2.5 MG/3 ML NPPB SCH ×5 (06:00→22:30)
[2016-12-01] MEDS: FUROSEMIDE 20 MG TABLET PO SCH ×2 (08:00→16:43)
[2016-12-01] MEDS: TEMPLATE NON-FORMULARY MED. (Ambrisentan (Letairis**) 10 MG) HOMEMEDPO SCH (09:00)
[2016-12-01] MEDS: GABAPENTIN 300 MG CAPSULE PO SCH ×2 (09:00→20:52)
[2016-12-01] MEDS: [UNRECOGNIZED DRUG - OTHER] HOMEMEDPO SCH (09:00)
[2016-12-01 09:04] VITALS: BP 102/66
[2016-12-01] MEDS: ONDANSETRON 2MG/ML, 2ML IVPush PRN ×2 (11:03→20:51)
[2016-12-01] MEDS: DRONABINOL 5 MG CAPSULE PO SCH ×2 (11:03→20:52)
[2016-12-01] MEDS: METOLAZONE 5 MG TABLET PO SCH (11:04)
[2016-12-01] MEDS: DULOXETINE 30 MG CAPSULE.DR PO SCH ×2 (11:05→22:17)
[2016-12-01] MEDS: FERROUS SULFATE 325 MG TABLET PO SCH (11:05)
[2016-12-01] MEDS: FLUTICASONE NASAL SPRAY 16GM NAS SCH ×2 (11:06→22:17)
[2016-12-01 12:21] VITALS: BP 106/72
[2016-12-01] MEDS: METOCLOPRAMIDE 5 MG/ML, 2ML IVPush PRN ×2 (13:22→22:16)
[2016-12-01] MEDS: POTASSIUM CHLORIDE 20 MEQ TAB.ER.PRT PO SCH (16:42)
[2016-12-01] MEDS: ENOXAPARIN 40 MG/0.4 ML SQ SCH (16:43)
[2016-12-01 20:24] VITALS: BP 111/65
[2016-12-01] MEDS: PHENOBARBITAL 100 MG TABLET PO SCH (20:52)
[2016-12-01] MEDS: PHENOBARBITAL 30 MG TABLET PO SCH (20:52)
[2016-12-01] MEDS: GABAPENTIN 400 MG CAPSULE PO SCH (20:52)
[2016-12-01] MEDS: TEMAZEPAM 15 MG CAPSULE PO SCH (22:16)
[2016-12-02 04:32] VITALS: BP 99/60
[2016-12-02 04:57] LABS: BLOOD UREA NITROGEN 14 mg/dL (7-18)
[2016-12-02] MEDS ORDERED: POTASSIUM CHLORIDE 20 MEQ TAB.ER.PRT PO ONE (07:00)
[2016-12-02] MEDS: ALBUTEROL SULFATE 2.5 MG/3 ML NPPB SCH ×5 (07:10→22:00)
[2016-12-02 09:00] VITALS: BP 116/73
[2016-12-02] MEDS: DRONABINOL 5 MG CAPSULE PO SCH ×2 (09:00→21:43)
[2016-12-02] MEDS: POTASSIUM CHLORIDE 20 MEQ TAB.ER.PRT PO SCH ×2 (09:00→17:00)
[2016-12-02] MEDS: FUROSEMIDE 20 MG TABLET PO SCH ×2 (09:00→17:50)
[2016-12-02] MEDS: FLUTICASONE NASAL SPRAY 16GM NAS SCH ×2 (10:46→21:44)
[2016-12-02] MEDS: [UNRECOGNIZED DRUG - OTHER] HOMEMEDPO SCH (10:46)
[2016-12-02] MEDS: TEMPLATE NON-FORMULARY MED. (Ambrisentan (Letairis**) 10 MG) HOMEMEDPO SCH (10:46)
[2016-12-02] MEDS: FERROUS SULFATE 325 MG TABLET PO SCH (10:48)
[2016-12-02] MEDS: DULOXETINE 30 MG CAPSULE.DR PO SCH ×2 (10:48→21:43)
[2016-12-02] MEDS: GABAPENTIN 300 MG CAPSULE PO SCH ×3 (10:49→21:44)
[2016-12-02] MEDS: METOLAZONE 5 MG TABLET PO SCH (10:50)
[2016-12-02] MEDS: ONDANSETRON 2MG/ML, 2ML IVPush PRN ×3 (11:09→21:45)
[2016-12-02] MEDS: METOCLOPRAMIDE 5 MG/ML, 2ML IVPush PRN (12:45)
[2016-12-02 12:54] VITALS: BP 102/67
[2016-12-02] MEDS: ENOXAPARIN 40 MG/0.4 ML SQ SCH (12:56)
[2016-12-02] MEDS ORDERED: morphine SULFATE ORAL.CONC 20 MG/ML PO ONE (13:30)
[2016-12-02 17:39] VITALS: BP 109/69
[2016-12-02] MEDS: morphine SULFATE ORAL.CONC 20 MG/ML PO SCH (21:00)
[2016-12-02 21:47] VITALS: BP 96/65
[2016-12-02] MEDS: PHENOBARBITAL 30 MG TABLET PO SCH (23:10)
[2016-12-02] MEDS: TEMAZEPAM 15 MG CAPSULE PO SCH (23:10)
[2016-12-02] MEDS: PHENOBARBITAL 100 MG TABLET PO SCH (23:11)
[2016-12-03 01:04] VITALS: BP 94/64
[2016-12-03] MEDS: METOCLOPRAMIDE 5 MG/ML, 2ML IVPush PRN ×2 (01:19→09:30)
[2016-12-03 04:47] LABS: BLOOD UREA NITROGEN 18 mg/dL (7-18)
[2016-12-03] MEDS: ALBUTEROL SULFATE 2.5 MG/3 ML NPPB SCH ×5 (06:00→22:15)
[2016-12-03] MEDS: ONDANSETRON 2MG/ML, 2ML IVPush PRN (06:30)
[2016-12-03 08:22] VITALS: BP 106/72
[2016-12-03] MEDS: [UNRECOGNIZED DRUG - OTHER] HOMEMEDPO SCH (09:00)
[2016-12-03] MEDS: morphine SULFATE ORAL.CONC 20 MG/ML PO SCH ×2 (09:00→21:00)
[2016-12-03] MEDS: TEMPLATE NON-FORMULARY MED. (Ambrisentan (Letairis**) 10 MG) HOMEMEDPO SCH (09:00)
[2016-12-03] MEDS ORDERED: morphine SULFATE ORAL.CONC 20 MG/ML PO SCH (09:00)
[2016-12-03] MEDS ORDERED: GABAPENTIN 300 MG CAPSULE PO SCH ×2 (09:00→12:00)
[2016-12-03] MEDS: DULOXETINE 30 MG CAPSULE.DR PO SCH ×2 (09:15→22:36)
[2016-12-03] MEDS: POTASSIUM CHLORIDE 20 MEQ TAB.ER.PRT PO SCH ×2 (09:16→16:53)
[2016-12-03] MEDS: FUROSEMIDE 20 MG TABLET PO SCH ×2 (09:16→16:53)
[2016-12-03] MEDS: DRONABINOL 5 MG CAPSULE PO SCH ×2 (09:17→21:34)
[2016-12-03] MEDS: GABAPENTIN 300 MG CAPSULE PO SCH ×3 (09:17→21:35)
[2016-12-03] MEDS: FERROUS SULFATE 325 MG TABLET PO SCH (09:18)
[2016-12-03] MEDS: METOLAZONE 5 MG TABLET PO SCH (09:18)
[2016-12-03] MEDS: FLUTICASONE NASAL SPRAY 16GM NAS SCH ×2 (09:18→21:35)
[2016-12-03] MEDS: ENOXAPARIN 40 MG/0.4 ML SQ SCH (12:08)
[2016-12-03 15:32] VITALS: BP 105/69
[2016-12-03 18:27] VITALS: BP 99/68
[2016-12-03] MEDS: TEMAZEPAM 15 MG CAPSULE PO SCH (21:34)
[2016-12-03] MEDS: PHENOBARBITAL 30 MG TABLET PO SCH (22:36)
[2016-12-03] MEDS: PHENOBARBITAL 100 MG TABLET PO SCH (22:36)
[2016-12-04 01:19] VITALS: BP 100/66
[2016-12-04] MEDS: ALBUTEROL SULFATE 2.5 MG/3 ML NPPB SCH ×5 (06:00→22:00)
[2016-12-04] MEDS: POTASSIUM CHLORIDE 20 MEQ TAB.ER.PRT PO SCH ×2 (08:27→16:11)
[2016-12-04] MEDS: DULOXETINE 30 MG CAPSULE.DR PO SCH ×2 (08:27→22:46)
[2016-12-04] MEDS: FERROUS SULFATE 325 MG TABLET PO SCH (08:27)
[2016-12-04] MEDS: FLUTICASONE NASAL SPRAY 16GM NAS SCH ×2 (08:28→20:48)
[2016-12-04] MEDS: [UNRECOGNIZED DRUG - OTHER] HOMEMEDPO SCH (08:28)
[2016-12-04] MEDS: FUROSEMIDE 20 MG TABLET PO SCH ×2 (08:28→16:15)
[2016-12-04] MEDS: TEMPLATE NON-FORMULARY MED. (Ambrisentan (Letairis**) 10 MG) HOMEMEDPO SCH (08:28)
[2016-12-04] MEDS: METOLAZONE 5 MG TABLET PO SCH (08:28)
[2016-12-04] MEDS: ONDANSETRON 2MG/ML, 2ML IVPush PRN ×2 (08:35→20:47)
[2016-12-04] MEDS: DRONABINOL 5 MG CAPSULE PO SCH ×2 (08:35→20:48)
[2016-12-04] MEDS: morphine SULFATE ORAL.CONC 20 MG/ML PO SCH (08:36)
[2016-12-04 08:42] VITALS: BP 100/62
[2016-12-04] MEDS: ENOXAPARIN 40 MG/0.4 ML SQ SCH (11:51)
[2016-12-04] MEDS: GABAPENTIN 300 MG CAPSULE PO SCH ×2 (13:29→20:53)
[2016-12-04 15:07] VITALS: BP 100/65
[2016-12-04 20:25] VITALS: BP 107/72
[2016-12-04] MEDS: TEMAZEPAM 15 MG CAPSULE PO SCH (22:46)
[2016-12-04] MEDS: PHENOBARBITAL 100 MG TABLET PO SCH (22:47)
[2016-12-04] MEDS: PHENOBARBITAL 30 MG TABLET PO SCH (22:47)
[2016-12-05 04:29] VITALS: BP 109/68
[2016-12-05 05:20] LABS: BLOOD UREA NITROGEN 18 mg/dL (7-18)
[2016-12-05] MEDS: ALBUTEROL SULFATE 2.5 MG/3 ML NPPB SCH ×3 (06:00→13:58)
[2016-12-05 08:34] VITALS: BP 103/64
[2016-12-05] MEDS: [UNRECOGNIZED DRUG - OTHER] HOMEMEDPO SCH (09:00)
[2016-12-05] MEDS: TEMPLATE NON-FORMULARY MED. (Ambrisentan (Letairis**) 10 MG) HOMEMEDPO SCH (09:00)
[2016-12-05] MEDS ORDERED: POTASSIUM CHLORIDE 20 MEQ TAB.ER.PRT PO ONE (09:00)
[2016-12-05] MEDS: ONDANSETRON 2MG/ML, 2ML IVPush PRN ×2 (09:11→14:57)
[2016-12-05] MEDS: POTASSIUM CHLORIDE 20 MEQ TAB.ER.PRT PO SCH (09:15)
[2016-12-05] MEDS: GABAPENTIN 300 MG CAPSULE PO SCH ×2 (09:16→13:21)
[2016-12-05] MEDS: DULOXETINE 30 MG CAPSULE.DR PO SCH (09:16)
[2016-12-05] MEDS: DRONABINOL 5 MG CAPSULE PO SCH (09:17)
[2016-12-05] MEDS: FLUTICASONE NASAL SPRAY 16GM NAS SCH (09:17)
[2016-12-05] MEDS ORDERED: METO5TAB5 PO (09:29)
[2016-12-05] MEDS ORDERED: MYCO500T3 PO (09:29)
[2016-12-05] MEDS ORDERED: DRON5CAP15 PO (09:29)
[2016-12-05] MEDS ORDERED: TEMA15CA6 PO (09:29)
[2016-12-05] MEDS ORDERED: FOLI-17 PO (09:29)
[2016-12-05] MEDS ORDERED: FLUT1DIS IH (09:29)
[2016-12-05] MEDS ORDERED: POTA20TA6 PO (09:29)
[2016-12-05] MEDS ORDERED: AMBR10TA3 PO (09:29)
[2016-12-05] MEDS ORDERED: GABA300C10 PO ×3 (09:29)
[2016-12-05] MEDS ORDERED: LOPE2CAP PO (09:29)
[2016-12-05] MEDS ORDERED: PRED20TA PO (09:29)
[2016-12-05] MEDS ORDERED: TADALAFIL PO (09:29)
[2016-12-05] MEDS ORDERED: TRAM50TA2 PO (09:29)
[2016-12-05] MEDS ORDERED: FERR325T20 PO (09:29)
[2016-12-05] MEDS ORDERED: DULO30CA2 PO ×2 (09:29)
[2016-12-05] MEDS ORDERED: PHEN64.8 PO (09:29)
[2016-12-05] MEDS ORDERED: CHOL400T2 PO (09:29)
[2016-12-05] MEDS ORDERED: CLON-365 PO (09:29)
[2016-12-05] MEDS ORDERED: CLON0.1T12 PO (09:29)
[2016-12-05] MEDS ORDERED: ALBU8.5H3 INH (09:29)
[2016-12-05] MEDS ORDERED: FLUT16SP NAS (09:29)
[2016-12-05 11:27] VITALS: BP 108/76
[2016-12-05] MEDS: FERROUS SULFATE 325 MG TABLET PO SCH (11:29)
[2016-12-05] MEDS: FUROSEMIDE 20 MG TABLET PO SCH (11:29)
[2016-12-05] MEDS: METOLAZONE 5 MG TABLET PO SCH (11:30)
[2016-12-05] MEDS: METOCLOPRAMIDE 5 MG/ML, 2ML IVPush PRN (13:21)
[2016-12-05] MEDS: ENOXAPARIN 40 MG/0.4 ML SQ SCH (13:22)
== END 2016-12-05 15:26 | disposition home health service (06) | DRG 896 ==
LOC: ED 11:17 → EDIP 11:59 → 4WST 13:09 → 3NW 11-27 15:04 → 3NE 12-04 13:35
PROVIDERS: ADMIT Family Medicine
DX: F11.23 Opioid dependence with withdrawal (principal); J96.21 Acute and chronic respiratory failure with hypoxia; I50.33 Acute on chronic diastolic (congestive) heart failure; J18.9 Pneumonia, unspecified organism; J44.0 Chronic obstructive pulmonary disease with (acute) lower respiratory infection; F41.9 Anxiety disorder, unspecified; E87.6 Hypokalemia; M34.1 CR(E)ST syndrome; M34.9 Systemic sclerosis, unspecified; F43.21 Adjustment disorder with depressed mood; G47.10 Hypersomnia, unspecified; G89.4 Chronic pain syndrome; I11.0 Hypertensive heart disease with heart failure; I25.10 Atherosclerotic heart disease of native coronary artery without angina pectoris; I27.2 Other secondary pulmonary hypertension; I95.89 Other hypotension; Z79.4 Long term (current) use of insulin; Z79.52 Long term (current) use of systemic steroids; Z79.899 Other long term (current) drug therapy; Z81.8 Family history of other mental and behavioral disorders; Z82.49 Family history of ischemic heart disease and other diseases of the circulatory system; Z86.14 Personal history of Methicillin resistant Staphylococcus aureus infection; Z87.891 Personal history of nicotine dependence; Z82.3 Family history of stroke; R11.2 Nausea with vomiting, unspecified; T40.2X5A Adverse effect of other opioids, initial encounter
CPT/HCPCS: 36415; 71010; 71250; 74177; 74230; 80048; 80053; 81001; 81003; 83605; 83690; 83735; 84100; 84132; 84145; 85025; 85610; 85730; 87040; 87046; 87324; 87328; 87329; 87899; 89055; 93005; 94640; 96361; 96365; 96375; J0696; J1170; J1650; J2270; J2405; J2543; J2550; J3370; J3480; J7613; Q0167; Q9967; J0780; J2765; J7030; J7040; J7050; J7512; J7517; J8530

== ENCOUNTER → 2017-07-03 | Outpatient (CLI) | payer MEDICARE ==
[~2017-07-03] MED LIST changes: -ALBU8.5H3 INH; +ALBU8.5H8 INH; +BENZ-17 PO; -BENZ100C4 PO; +CLON-365 PO; +CLON0.1T12 PO; +DOCU-131 PO; -DOCU-30 PO; +DRON5CAP15 PO; +FERR325T18 PO; -FERR325T20 PO; +FLUT16SP NAS; +GABA-827 PO; +LOPE2CAP PO; +MYCO500T3 PO; +PRED20TA PO; +TADALAFIL PO; +TEMA15CA6 PO; +TRAM50TA2 PO
[2017-07-03 15:34] LABS: HEMATOCRIT 46.7 % (34.6-47.8); HEMOGLOBIN 15.5 g/dL (11.7-16.4)
[2017-07-03 15:48] LABS: ASPARTATE AMINO TRANSFERASE 58 U/L (15-37); BLOOD UREA NITROGEN 18 mg/dL (7-18)
== END | disposition home or self-care (01) ==
LOC: CFH 13:52
PROVIDERS: ATTEND Specialist
DX: M34.81 Systemic sclerosis with lung involvement (principal)
CPT/HCPCS: 36415; 80053; 81003; 85025

== ENCOUNTER → 2017-10-14 | Outpatient (CLI) | payer MEDICARE ==
[2017-10-14 13:10] LABS: BASOPHILS # (AUTO) 0.07 x10^3/uL (0-0.1); BASOPHILS % (AUTO) 1 % (0-1); EOSINOPHILS # (AUTO) 0.22 x10^3/uL (0-0.4); EOSINOPHILS % (AUTO) 2 % (1-7); LYMPHOCYTES # (AUTO) 1.69 x10^3/uL (1-3.4); LYMPHOCYTES % (AUTO) 16 % (22-44); MD NO; MEAN CORPUSCULAR HEMOGLOBIN 28.9 pg (27.0-34.8); MEAN CORPUSCULAR HGB CONC 33.3 g/dL (32.4-35.8); MEAN CORPUSCULAR VOLUME 86.8 fL (80-100); MEAN PLATELET VOLUME 8.4 fL (7.4-10.4); MONOCYTES # (AUTO) 0.52 x10^3/uL (0.2-0.8); MONOCYTES % (AUTO) 5 % (2-9); NEUTROPHILS % (AUTO) 77 % (42-75); PLATELET COUNT 392 x10^3/uL (130-400); RED BLOOD COUNT 4.66 x10^6/uL (3.82-5.3); RED CELL DISTRIBUTION WIDTH 14.9 % (9.6-15.2)
[2017-10-14 13:26] LABS: ALBUMIN 3.8 g/dL (3.4-5.0); ANION GAP 9 mmol/L (5-15); CHLORIDE 96 mmol/L (98-107)
[2017-10-14 13:33] LABS: ALANINE AMINOTRANSFERASE 27 U/L (12-78); ALKALINE PHOSPHATASE 147 U/L (45-117); BILIRUBIN,TOTAL 0.6 mg/dL (0.2-1.0); CREATININE 0.75 mg/dL (0.55-1.02); TOTAL PROTEIN 8.4 g/dL (6.4-8.2)
== END ==
LOC: CFH 11:44
PROVIDERS: ATTEND Family Medicine
DX: R91.8 Other nonspecific abnormal finding of lung field (principal); I27.20 Pulmonary hypertension, unspecified; S32.599A Other specified fracture of unspecified pubis, initial encounter for closed fracture; X58.XXXA Exposure to other specified factors, initial encounter; Y93.89 Activity, other specified; Y92.89 Other specified places as the place of occurrence of the external cause; Y99.8 Other external cause status
CPT/HCPCS: 36415; 71046; 72170; 80053; 83880; 85025

== ENCOUNTER → 2017-10-21 | Outpatient (CLI) | payer MEDICARE | END | disposition home or self-care (01) | LOC: CVU 14:38 | PROVIDERS: ATTEND Internal Medicine Cardiovascular Disease | DX: I08.1 Rheumatic disorders of both mitral and tricuspid valves (principal); J84.9 Interstitial pulmonary disease, unspecified; I31.3 Pericardial effusion (noninflammatory); I27.0 Primary pulmonary hypertension; Z87.891 Personal history of nicotine dependence | CPT/HCPCS: 93306 ==

== ENCOUNTER → 2017-11-20 | Outpatient (CLI) | payer MEDICARE ==
[~2017-11-20] MED LIST changes: +GADOBUTROL 7.5 MMOL/7.5 ML PFS ONE
== END | disposition home or self-care (01) ==
LOC: CFH 12:32
PROVIDERS: ATTEND Specialist
DX: M67.271 Synovial hypertrophy, not elsewhere classified, right ankle and foot (principal)
CPT/HCPCS: 73720; A9585

== ENCOUNTER → 2018-02-02 | Outpatient (CLI) | payer MEDICARE ==
[~2018-02-02] MED LIST changes: -GADOBUTROL 7.5 MMOL/7.5 ML PFS ONE
[2018-02-02 12:53] LABS: HCT (SEDRATE) 41.5 % (34.6-47.8)
[2018-02-02 12:54] LABS: BASOPHILS # (AUTO) 0.05 x10^3/uL (0-0.1); BASOPHILS % (AUTO) 0 % (0-1); EOSINOPHILS # (AUTO) 0.09 x10^3/uL (0-0.4); EOSINOPHILS % (AUTO) 1 % (1-7); LYMPHOCYTES # (AUTO) 1.47 x10^3/uL (1-3.4); LYMPHOCYTES % (AUTO) 12 % (22-44); MD NO; MEAN CORPUSCULAR HEMOGLOBIN 28.9 pg (27.0-34.8); MEAN CORPUSCULAR HGB CONC 33.2 g/dL (32.4-35.8); MEAN CORPUSCULAR VOLUME 86.8 fL (80-100); MEAN PLATELET VOLUME 8.6 fL (7.4-10.4); MONOCYTES # (AUTO) 0.87 x10^3/uL (0.2-0.8); MONOCYTES % (AUTO) 7 % (2-9); NEUTROPHILS # (AUTO) 9.87 x10^3/uL (1.8-6.8); NEUTROPHILS % (AUTO) 80 % (42-75); PLATELET COUNT 320 x10^3/uL (130-400); RED BLOOD COUNT 4.78 x10^6/uL (3.82-5.3); RED CELL DISTRIBUTION WIDTH 15.1 % (9.6-15.2)
[2018-02-02 13:19] LABS: ALANINE AMINOTRANSFERASE 26 U/L (12-78); ALBUMIN 3.8 g/dL (3.4-5.0); ANION GAP 9 mmol/L (5-15); CALCIUM 9.2 mg/dL (8.5-10.1); CHLORIDE 90 mmol/L (98-107); CREATININE 1.26 mg/dL (0.55-1.02)
[2018-02-02 13:23] LABS: MICROSCOPIC NOT IND
[2018-02-02 13:25] LABS: ALKALINE PHOSPHATASE 104 U/L (45-117); BILIRUBIN,TOTAL 0.4 mg/dL (0.2-1.0); CREATINE KINASE, TOTAL 96 U/L (26-192); TOTAL PROTEIN 8.1 g/dL (6.4-8.2)
== END | disposition home or self-care (01) ==
LOC: CFH 10:57
PROVIDERS: ATTEND Specialist
DX: M34.81 Systemic sclerosis with lung involvement (principal); Z79.899 Other long term (current) drug therapy
CPT/HCPCS: 36415; 80053; 81003; 82085; 82550; 85025; 85651; 86140

== ENCOUNTER → 2018-05-06 | Outpatient (CLI) | payer MEDICARE ==
[~2018-05-06] MED LIST changes: -CLON-365 PO; +CLON1TAB11 PO; -SENN1TAB7 PO; +SENN1TAB8 PO; +TETR-16 PO; -TETR250C3 PO
[2018-05-06 12:32] LABS: BASOPHILS # (AUTO) 0.05 x10^3/uL (0-0.1); BASOPHILS % (AUTO) 1 % (0-1); EOSINOPHILS # (AUTO) 0.16 x10^3/uL (0-0.4); EOSINOPHILS % (AUTO) 2 % (1-7); LYMPHOCYTES # (AUTO) 2.41 x10^3/uL (1-3.4); LYMPHOCYTES % (AUTO) 25 % (22-44); MD NO; MEAN CORPUSCULAR HEMOGLOBIN 28.4 pg (27.0-34.8); MEAN CORPUSCULAR HGB CONC 33.2 g/dL (32.4-35.8); MEAN CORPUSCULAR VOLUME 85.8 fL (80-100); MEAN PLATELET VOLUME 9.3 fL (7.4-10.4); MONOCYTES # (AUTO) 0.85 x10^3/uL (0.2-0.8); MONOCYTES % (AUTO) 9 % (2-9); NEUTROPHILS # (AUTO) 6.08 x10^3/uL (1.8-6.8); NEUTROPHILS % (AUTO) 64 % (42-75); PLATELET COUNT 307 x10^3/uL (130-400); RED BLOOD COUNT 5.41 x10^6/uL (3.82-5.3); RED CELL DISTRIBUTION WIDTH 14.4 % (9.6-15.2)
[2018-05-06 12:57] LABS: ALBUMIN 4.1 g/dL (3.4-5.0); CALCIUM 9.2 mg/dL (8.5-10.1); CHLORIDE 89 mmol/L (98-107)
[2018-05-06 13:02] LABS: ALANINE AMINOTRANSFERASE 32 U/L (12-78); ALKALINE PHOSPHATASE 138 U/L (45-117); ANION GAP 8 mmol/L (5-15); BILIRUBIN,TOTAL 0.5 mg/dL (0.2-1.0); CHOL/HDL RATIO 3.9; CHOLESTEROL, TOTAL 301 mg/dL (140-239); CREATININE 0.99 mg/dL (0.55-1.02); HDL CHOL % 26 % (28-40); HDL CHOLESTEROL (DIRECT) 77 mg/dL (40-60); LDL CHOLESTEROL,CALCULATED 193 mg/dL (54-169); TOTAL PROTEIN 8.8 g/dL (6.4-8.2); TRIGLYCERIDES 154 mg/dL (50-200); VLDL CHOLESTEROL 31 mg/dL (0-25)
[2018-05-06 13:03] LABS: LDL/HDL RATIO 2.5 (0.5-3.0)
== END | disposition home or self-care (01) ==
LOC: CFH 10:54
PROVIDERS: ATTEND Physician Assistant
DX: I27.0 Primary pulmonary hypertension (principal); I95.9 Hypotension, unspecified; J84.10 Pulmonary fibrosis, unspecified; J96.11 Chronic respiratory failure with hypoxia; J44.9 Chronic obstructive pulmonary disease, unspecified; Z87.891 Personal history of nicotine dependence; I42.9 Cardiomyopathy, unspecified; R06.02 Shortness of breath
CPT/HCPCS: 36415; 80053; 80061; 85025

== ENCOUNTER → 2018-05-11 | Outpatient (CLI) | payer MEDICARE ==
[2018-05-11 15:05] LABS: ANION GAP 8 mmol/L (5-15); CALCIUM 9.2 mg/dL (8.5-10.1); CHLORIDE 87 mmol/L (98-107); CREATININE 0.99 mg/dL (0.55-1.02)
== END | disposition home or self-care (01) ==
LOC: CFH 13:11
PROVIDERS: ATTEND Physician Assistant
DX: I27.0 Primary pulmonary hypertension (principal); R53.83 Other fatigue; R51 Headache; G47.30 Sleep apnea, unspecified
CPT/HCPCS: 36415; 80048

== ENCOUNTER → 2018-06-03 | Outpatient (CLI) | payer MEDICARE ==
[2018-06-03 13:42] LABS: ANION GAP 12 mmol/L (5-15); CALCIUM 8.9 mg/dL (8.5-10.1); CHLORIDE 95 mmol/L (98-107); CREATININE 1.13 mg/dL (0.55-1.02)
== END | disposition home or self-care (01) ==
LOC: CFH 09:59
PROVIDERS: ATTEND Internal Medicine Cardiovascular Disease
DX: I10 Essential (primary) hypertension (principal); I95.9 Hypotension, unspecified; R53.83 Other fatigue
CPT/HCPCS: 36415; 80048

== ENCOUNTER → 2018-06-09 | Outpatient (CLI) | payer MEDICARE ==
[2018-06-09 15:54] LABS: HCT (SEDRATE) 43.4 % (34.6-47.8)
== END | disposition home or self-care (01) ==
LOC: CFH 12:56
PROVIDERS: ATTEND Nurse Practitioner
DX: L02.611 Cutaneous abscess of right foot (principal)
CPT/HCPCS: 36415; 85651; 86140

== ENCOUNTER → 2018-12-08 | Outpatient (CLI) | payer MEDICAID, MEDICARE ==
[~2018-12-08] MED LIST changes: -GABA600T2 PO; +GABA600T7 PO; +HYDR-3059 PO; -HYDR10TA11 PO; +SENN-177 PO; -SENN1TAB8 PO
== END | disposition home or self-care (01) ==
LOC: CFH 13:47
PROVIDERS: ATTEND Family Medicine
DX: J90 Pleural effusion, not elsewhere classified (principal); R91.8 Other nonspecific abnormal finding of lung field
CPT/HCPCS: 71046

== ENCOUNTER 2018-12-15 13:29 | Inpatient (IN) | payer MEDICARE ==
[~2018-12-15] VITALS: Ht 170.2 cm; Wt 76.5 kg
[2018-12-15 14:18] LABS: BASOPHILS # (AUTO) 0.07 x10^3/uL (0-0.1); BASOPHILS % (AUTO) 1 % (0-1); EOSINOPHILS # (AUTO) 0.27 x10^3/uL (0-0.4); EOSINOPHILS % (AUTO) 2 % (1-7); LYMPHOCYTES # (AUTO) 1.71 x10^3/uL (1-3.4); LYMPHOCYTES % (AUTO) 14 % (22-44); MD NO; MEAN CORPUSCULAR VOLUME 83.8 fL (80-100); MEAN PLATELET VOLUME 9.1 fL (7.4-10.4); MONOCYTES # (AUTO) 0.67 x10^3/uL (0.2-0.8); MONOCYTES % (AUTO) 6 % (2-9); NEUTROPHILS % (AUTO) 77 % (42-75); PLATELET COUNT 324 x10^3/uL (130-400); RED BLOOD COUNT 5.74 x10^6/uL (3.82-5.3); RED CELL DISTRIBUTION WIDTH 15.9 % (9.6-15.2)
[2018-12-15 14:20] LABS: ANION GAP 8 mmol/L (5-15); CALCIUM 9.3 mg/dL (8.5-10.1); CHLORIDE 101 mmol/L (98-107); CREATININE 1.08 mg/dL (0.55-1.02)
--- NOTE | 2018-12-15 14:21 | NUR ---
LABOR DELIVERY RN: PT TO ROOM FROM LOBBY, VIA WHEELCHAIR
--- NOTE | 2018-12-15 14:40 | NUR ---
ASSUMED CARE OF PT AT THIS TIME FROM LOBBY VIA WHEELCHAIR. DR. HAYES AT BEDSIDE FOR EVALUATION. PT REPORTS "I FEEL LIKE I CAN'T BREATHE, I DON'T THINK MY OXYGEN CONCENTRATOR HAS BEEN WORKING RIGHT AT HOME, I HAD TO BUMP MYSELF UP TO 4L, USUALLY ONLY USING 3L, I DIDN'T DO ANY OF MY INHALERS OR STUFF YET BECUASE I DIDN'T WANT IT TO INTERFERE WITH TREATMENT, I'M HAVING PAIN IN MY BACK AND RIB CAGE TOO." DENIES CP, RATES PAIN 04/05. PT ABLE TO TALK AND SPEAK IN FULL SENTENCES, RESP REGULAR AND UNLABORED AT THIS TIME. CONT PULSE OX, BP, CARDIAC MONITORS IN PLACE. ASSESSMENT COMPLETED. CALL LIGHT IN REACH. FALL PRECAUTIONS IN PLACE. SIGNIFICANT OTHER AT BEDSIDE.
[2018-12-15] MEDS ORDERED: VANCOMYCIN 1,300 MG in SODIUM CHLORIDE 0.9% 250 ML IV ONE (15:00)
[2018-12-15] MEDS ORDERED: PIPERACILLIN/TAZO/PMX 3.375GM 50 ML IVPB ONE (15:00)
[2018-12-15] MEDS ORDERED: SODIUM CHLORIDE FLUSH 10ML SYR IVF ONE (15:00)
[2018-12-15] MEDS ORDERED: VANCOMYCIN PER PHARMACY MC ONE (15:00)
[2018-12-15] MEDS ORDERED: SODIUM CHLORIDE 0.9% 1,000ML IVBOLUS ONE (15:00)
--- NOTE | 2018-12-15 15:15 | NUR ---
IV PLACED, IVF INFUSING PER ORDER. LAB AT BEDSIDE FOR BLOOD CULTURE DRAW X2. PT DENIES NEED TO USE RESTROOM. PILLOW AND BLANKET PROVIDED FOR COMFORT. PT REQUESTING PAIN MEDICATION FOR "RIB CAGE AND BACK" DISCUSSED WITH DR. HAYES, AWAITING ORDERS. CALL LIGHT IN REACH. VSS. FAMILY AT BEDSIDE.
[2018-12-15] MEDS ORDERED: KETOROLAC 30 MG/1 ML IVPush ONE (15:37)
[2018-12-15] MEDS ORDERED: PIPERACILLIN/TAZO/PMX 3.375GM 50 ML ONE (15:38)
[2018-12-15 15:41] LABS: TROPONIN I < 0.015 ng/mL (0.000-0.045)
[2018-12-15] MEDS ORDERED: OMNIPAQUE 350 MG/ML, 100ML BOTTLE ONE (16:06)
[2018-12-15] MEDS ORDERED: KETOROLAC 30 MG/1 ML ONE (16:09)
--- NOTE | 2018-12-15 16:10 | NUR ---
REPORT AND CARE TO BREAK MARSHALL BARRAGAN RN TO ADMIN IV ANTIBIOTICS, VERIFIED BLOOD CULTURES [id number], PINK WRIST BAND IN PLACE. PT PROVIDED WARM BLANKETS FOR COMFORT. VSS. CALL LIGHT IN REACH.
--- NOTE | 2018-12-15 17:15 | NUR ---
PT MEDICATED NOTED PER ORDER FOR IV ANTIBITIOCS ON IV PUMP. PT REPORTS "FEELING BETTER" RATES PAIN 8/10, REFUSES NEED FOR ADDITIONAL PAIN MEDICATION AT THIS TIME. RESP REMAIN REGULAR AND UNLABORED, PULSE OX 98% 3L NC O2. DENIES NEED TO USE RESTROOM. VSS. CALL LIGHT IN REACH.
[2018-12-15] MEDS ORDERED: GABA600T7 PO ×2 (17:40)
[2018-12-15] MEDS ORDERED: GABA300C10 PO (17:40)
--- NOTE | 2018-12-15 17:40 | NUR ---
DR. HAYES AT BEDSIDE FOR EVALUATION, DISCUSSING POC, RECOMMENDING ADMISSION, PT AGREES TO POC. AWAITING ADMIT ORDERS. CALL LIGHT IN REACH. VSS.
[2018-12-15] MEDS ORDERED: OMEP40CA6 PO (17:43)
[2018-12-15] MEDS ORDERED: AMOX1TAB12 PO (17:43)
[2018-12-15] MEDS ORDERED: FURO20TA3 PO (17:43)
[2018-12-15] MEDS ORDERED: methylPREDNISolone SOD SUCC 125 MG/2 ML ONE (17:47)
--- NOTE | 2018-12-15 17:57 | NUR ---
BEDSIDE REPORT AND CARE TO JUAN REYES AT THIS TIME
[2018-12-15] MEDS ORDERED: methylPREDNISolone SOD SUCC 125 MG/2 ML IVP ONE (18:00)
[2018-12-15] MEDS ORDERED: DIPHENHYDRAMINE 50 MG/ML, 1ML ONE (18:08)
[2018-12-15] MEDS ORDERED: ONDANSETRON 2MG/ML, 2ML ONE (18:08)
[2018-12-15] MEDS ORDERED: DIPHENHYDRAMINE 50 MG/ML, 1ML IV ONE (18:30)
[2018-12-15] MEDS ORDERED: ONDANSETRON 2MG/ML, 2ML IVPush ONE (18:30)
[2018-12-15 19:44] VITALS: BP 105/69
[2018-12-15] MEDS: AMPICILLIN/SULBACTAM 1,500 MG in SODIUM CHLORIDE 0.9% 50 ML IV SCH (21:31)
[2018-12-15] MEDS: ENOXAPARIN 40 MG/0.4 ML SQ SCH (21:31)
[2018-12-15] MEDS: FAMOTIDINE 20 MG/2 ML IVPush SCH (21:31)
[2018-12-15] MEDS: ALBUTEROL/IPRATROPIUM 2.5MG/0.5MG, 3 ML NPPB SCH (22:12)
[2018-12-15] MEDS ORDERED: TEMAZEPAM 15 MG CAPSULE PO PRN (23:00)
[2018-12-15] MEDS ORDERED: ALBUTEROL SULFATE 2.5 MG/3 ML NPPB PRN (23:00)
[2018-12-15] MEDS: POTASSIUM CHLORIDE 20 MEQ in LACTATED RINGERS 1,000 ML IV SCH (23:09)
[2018-12-15] MEDS: KETOROLAC 30 MG/1 ML IV PRN (23:11)
[2018-12-16 01:56] VITALS: BP 96/61
[2018-12-16] MEDS: ALBUTEROL/IPRATROPIUM 2.5MG/0.5MG, 3 ML NPPB SCH ×6 (03:00→23:13)
[2018-12-16 04:58] LABS: BASOPHILS # (AUTO) 0.02 x10^3/uL (0-0.1); BASOPHILS % (AUTO) 0 % (0-1); EOSINOPHILS # (AUTO) 0.01 x10^3/uL (0-0.4); EOSINOPHILS % (AUTO) 0 % (1-7); LYMPHOCYTES # (AUTO) 0.95 x10^3/uL (1-3.4); LYMPHOCYTES % (AUTO) 12 % (22-44); MD NO; MEAN CORPUSCULAR HEMOGLOBIN 27.2 pg (27.0-34.8); MEAN CORPUSCULAR HGB CONC 32.3 g/dL (32.4-35.8); MEAN CORPUSCULAR VOLUME 84.2 fL (80-100); MEAN PLATELET VOLUME 9.6 fL (7.4-10.4); MONOCYTES # (AUTO) 0.34 x10^3/uL (0.2-0.8); MONOCYTES % (AUTO) 4 % (2-9); NEUTROPHILS # (AUTO) 6.94 x10^3/uL (1.8-6.8); NEUTROPHILS % (AUTO) 84 % (42-75); PLATELET COUNT 249 x10^3/uL (130-400); RED BLOOD COUNT 4.41 x10^6/uL (3.82-5.3); RED CELL DISTRIBUTION WIDTH 15.2 % (9.6-15.2)
[2018-12-16 05:09] LABS: ALANINE AMINOTRANSFERASE 20 U/L (12-78); ALBUMIN 3.1 g/dL (3.4-5.0); ANION GAP 8 mmol/L (5-15); CALCIUM 8.2 mg/dL (8.5-10.1); CHLORIDE 105 mmol/L (98-107); CREATININE 0.95 mg/dL (0.55-1.02)
[2018-12-16 05:19] LABS: ALKALINE PHOSPHATASE 138 U/L (45-117); BILIRUBIN,TOTAL 0.1 mg/dL (0.2-1.0); THYROID STIMULATING HORMONE 0.818 mIU/L (0.358-3.740); TOTAL PROTEIN 6.7 g/dL (6.4-8.2)
[2018-12-16] MEDS: methylPREDNISolone SOD SUCC 40 MG/ML IVPush SCH ×4 (05:47→23:30)
[2018-12-16] MEDS: AMPICILLIN/SULBACTAM 1,500 MG in SODIUM CHLORIDE 0.9% 50 ML IV SCH ×3 (05:47→22:16)
[2018-12-16] MEDS ORDERED: POTASSIUM CHLORIDE 20 MEQ TAB.ER.PRT PO ONE (08:30)
[2018-12-16 08:35] VITALS: BP 94/53
[2018-12-16] MEDS: DULOXETINE 30 MG CAPSULE.DR PO SCH (09:00)
[2018-12-16] MEDS: FLUTICASONE NASAL SPRAY 16GM NAS SCH ×2 (09:00→22:52)
[2018-12-16] MEDS: [UNRECOGNIZED DRUG - OTHER] HOMEMEDPO SCH (09:00)
[2018-12-16] MEDS: TEMPLATE NON-FORMULARY MED. (Ambrisentan (Letairis**) 10 MG) HOMEMEDPO SCH (09:00)
[2018-12-16] MEDS: OMEPRAZOLE 20 MG CAPSULE.DR PO SCH (10:00)
[2018-12-16] MEDS: METOLAZONE 5 MG TABLET PO SCH (10:00)
[2018-12-16] MEDS: FUROSEMIDE 20 MG TABLET PO SCH (10:01)
[2018-12-16] MEDS: FOLIC ACID 1 MG TABLET PO SCH (10:01)
[2018-12-16] MEDS: DRONABINOL 5 MG CAPSULE PO SCH ×2 (10:01→22:21)
[2018-12-16] MEDS: CHOLECALCIFEROL 400 UNITS TABLET PO SCH (10:01)
[2018-12-16] MEDS: FAMOTIDINE 20 MG/2 ML IVPush SCH (10:02)
[2018-12-16] MEDS: POTASSIUM CHLORIDE 20 MEQ TAB.ER.PRT PO SCH ×2 (10:02→17:00)
[2018-12-16] MEDS: BUDESONIDE 0.5 MG/2 ML INHA NPPB SCH ×2 (11:00→18:48)
[2018-12-16] MEDS ORDERED: ACETAMINOPHEN 325 MG TABLET PO PRN (12:00)
[2018-12-16] MEDS: KETOROLAC 30 MG/1 ML IV PRN ×2 (13:04→22:52)
[2018-12-16 13:57] VITALS: BP 124/74
[2018-12-16] MEDS: GUAIFENESIN 200 MG TABLET PO SCH ×2 (16:58→22:17)
[2018-12-16] MEDS: POTASSIUM CHLORIDE 20 MEQ in LACTATED RINGERS 1,000 ML IV SCH (18:01)
[2018-12-16 20:22] VITALS: BP 111/68
[2018-12-16] MEDS: PHENOBARBITAL 64.8 MG HOMEMEDPO SCH (22:17)
[2018-12-16] MEDS: ENOXAPARIN 40 MG/0.4 ML SQ SCH (22:17)
[2018-12-16] MEDS: FAMOTIDINE 20 MG TABLET PO SCH (22:20)
[2018-12-16] MEDS: GABAPENTIN 400 MG CAPSULE PO SCH (22:22)
[2018-12-17 02:51] VITALS: BP 111/73
[2018-12-17] MEDS: ALBUTEROL/IPRATROPIUM 2.5MG/0.5MG, 3 ML NPPB SCH ×6 (03:55→22:58)
[2018-12-17] MEDS: methylPREDNISolone SOD SUCC 40 MG/ML IVPush SCH (06:26)
[2018-12-17] MEDS: AMPICILLIN/SULBACTAM 1,500 MG in SODIUM CHLORIDE 0.9% 50 ML IV SCH (06:27)
[2018-12-17] MEDS: GUAIFENESIN 200 MG TABLET PO SCH ×4 (06:27→20:46)
[2018-12-17] MEDS: BUDESONIDE 0.5 MG/2 ML INHA NPPB SCH ×2 (07:00→19:10)
[2018-12-17 09:05] VITALS: BP 104/66
[2018-12-17] MEDS: DRONABINOL 5 MG CAPSULE PO SCH ×2 (10:57→20:46)
[2018-12-17] MEDS: FAMOTIDINE 20 MG TABLET PO SCH ×2 (10:57→20:46)
[2018-12-17] MEDS: FUROSEMIDE 20 MG TABLET PO SCH (10:57)
[2018-12-17] MEDS: GABAPENTIN 300 MG CAPSULE PO SCH ×2 (10:57→18:23)
[2018-12-17] MEDS: FOLIC ACID 1 MG TABLET PO SCH (10:58)
[2018-12-17] MEDS: DULOXETINE 30 MG CAPSULE.DR PO SCH (10:58)
[2018-12-17] MEDS: METOLAZONE 5 MG TABLET PO SCH (10:58)
[2018-12-17] MEDS: OMEPRAZOLE 20 MG CAPSULE.DR PO SCH (10:58)
[2018-12-17] MEDS: CHOLECALCIFEROL 400 UNITS TABLET PO SCH (10:59)
[2018-12-17] MEDS: FLUTICASONE NASAL SPRAY 16GM NAS SCH ×2 (11:03→21:56)
[2018-12-17] MEDS: KETOROLAC 30 MG/1 ML IV PRN (11:03)
[2018-12-17] MEDS: TEMPLATE NON-FORMULARY MED. (Ambrisentan (Letairis**) 10 MG) HOMEMEDPO SCH (11:04)
[2018-12-17] MEDS: POTASSIUM CHLORIDE 20 MEQ TAB.ER.PRT PO SCH ×2 (11:04→18:16)
[2018-12-17] MEDS: [UNRECOGNIZED DRUG - OTHER] HOMEMEDPO SCH (11:04)
[2018-12-17 14:10] VITALS: BP 105/65
[2018-12-17] MEDS: POTASSIUM CHLORIDE 20 MEQ in LACTATED RINGERS 1,000 ML IV SCH (20:45)
[2018-12-17] MEDS: ENOXAPARIN 40 MG/0.4 ML SQ SCH (20:45)
[2018-12-17] MEDS: AMOXICILLIN/CLAV 875-125MG TABLET PO SCH (20:46)
[2018-12-17] MEDS: GABAPENTIN 400 MG CAPSULE PO SCH (20:46)
[2018-12-17 21:45] VITALS: BP 122/85
[2018-12-17] MEDS: PHENOBARBITAL 64.8 MG HOMEMEDPO SCH (21:56)
[2018-12-18 00:40] VITALS: BP 106/69
[2018-12-18] MEDS: GUAIFENESIN 200 MG TABLET PO SCH ×3 (05:26→16:56)
[2018-12-18 05:30] LABS: BASOPHILS # (AUTO) 0.03 x10^3/uL (0-0.1); BASOPHILS % (AUTO) 0 % (0-1); EOSINOPHILS # (AUTO) 0.01 x10^3/uL (0-0.4); EOSINOPHILS % (AUTO) 0 % (1-7); LYMPHOCYTES # (AUTO) 0.93 x10^3/uL (1-3.4); LYMPHOCYTES % (AUTO) 13 % (22-44); MD NO; MEAN CORPUSCULAR HEMOGLOBIN 27.6 pg (27.0-34.8); MEAN CORPUSCULAR HGB CONC 32.6 g/dL (32.4-35.8); MEAN CORPUSCULAR VOLUME 84.7 fL (80-100); MEAN PLATELET VOLUME 9.5 fL (7.4-10.4); MONOCYTES # (AUTO) 0.42 x10^3/uL (0.2-0.8); MONOCYTES % (AUTO) 6 % (2-9); NEUTROPHILS # (AUTO) 6.01 x10^3/uL (1.8-6.8); NEUTROPHILS % (AUTO) 81 % (42-75); PLATELET COUNT 210 x10^3/uL (130-400); RED BLOOD COUNT 4.07 x10^6/uL (3.82-5.3); RED CELL DISTRIBUTION WIDTH 15.7 % (9.6-15.2)
[2018-12-18 05:35] LABS: ALBUMIN 3.2 g/dL (3.4-5.0); ANION GAP 4 mmol/L (5-15); CALCIUM 8.6 mg/dL (8.5-10.1); CHLORIDE 106 mmol/L (98-107)
[2018-12-18 05:39] LABS: ALANINE AMINOTRANSFERASE 18 U/L (12-78); ALKALINE PHOSPHATASE 118 U/L (45-117); BILIRUBIN,TOTAL 0.2 mg/dL (0.2-1.0); CREATININE 0.82 mg/dL (0.55-1.02); TOTAL PROTEIN 6.5 g/dL (6.4-8.2)
[2018-12-18] MEDS: ALBUTEROL/IPRATROPIUM 2.5MG/0.5MG, 3 ML NPPB SCH ×3 (06:45→15:10)
[2018-12-18 07:31] VITALS: BP 109/69
[2018-12-18] MEDS: DULOXETINE 30 MG CAPSULE.DR PO SCH (08:50)
[2018-12-18] MEDS: FUROSEMIDE 20 MG TABLET PO SCH (08:50)
[2018-12-18] MEDS: GABAPENTIN 300 MG CAPSULE PO SCH ×2 (08:50→14:24)
[2018-12-18] MEDS: POTASSIUM CHLORIDE 20 MEQ TAB.ER.PRT PO SCH ×2 (08:50→16:56)
[2018-12-18] MEDS: CHOLECALCIFEROL 400 UNITS TABLET PO SCH (08:50)
[2018-12-18] MEDS: FOLIC ACID 1 MG TABLET PO SCH (08:50)
[2018-12-18] MEDS: DRONABINOL 5 MG CAPSULE PO SCH (08:50)
[2018-12-18] MEDS: METOLAZONE 5 MG TABLET PO SCH (08:50)
[2018-12-18] MEDS: OMEPRAZOLE 20 MG CAPSULE.DR PO SCH (08:50)
[2018-12-18] MEDS: FAMOTIDINE 20 MG TABLET PO SCH (08:50)
[2018-12-18] MEDS: AMOXICILLIN/CLAV 875-125MG TABLET PO SCH (08:50)
[2018-12-18] MEDS: [UNRECOGNIZED DRUG - OTHER] HOMEMEDPO SCH (08:51)
[2018-12-18] MEDS: FLUTICASONE NASAL SPRAY 16GM NAS SCH (08:51)
[2018-12-18] MEDS: TEMPLATE NON-FORMULARY MED. (Ambrisentan (Letairis**) 10 MG) HOMEMEDPO SCH (08:51)
[2018-12-18] MEDS: POTASSIUM CHLORIDE 20 MEQ in LACTATED RINGERS 1,000 ML IV SCH (10:12)
[2018-12-18] MEDS: BUDESONIDE 0.5 MG/2 ML INHA NPPB SCH (10:55)
[2018-12-18] MEDS ORDERED: CALCIUM CARBONATE 500 MG TAB.CHEW PO PRN (12:00)
[2018-12-18 13:08] VITALS: BP 110/69
[2018-12-18] MEDS ORDERED: TRAM50TA2 PO (15:50)
[2018-12-18] MEDS ORDERED: PRED20TA PO (15:50)
[2018-12-18] MEDS ORDERED: AMOX1TAB12 PO (15:50)
[2018-12-18] MEDS ORDERED: GUAI-103 PO (16:12)
== END 2018-12-18 18:20 | disposition home or self-care (01) | DRG 177 ==
LOC: ED 16:21 → EDIP 18:01 → 5SO 19:12
PROVIDERS: ADMIT Internal Medicine; ATTEND Internal Medicine
DX: J69.0 Pneumonitis due to inhalation of food and vomit (principal); J96.21 Acute and chronic respiratory failure with hypoxia; I31.3 Pericardial effusion (noninflammatory); J44.1 Chronic obstructive pulmonary disease with (acute) exacerbation; I50.32 Chronic diastolic (congestive) heart failure; J98.11 Atelectasis; M34.9 Systemic sclerosis, unspecified; F32.9 Major depressive disorder, single episode, unspecified; G89.4 Chronic pain syndrome; I11.0 Hypertensive heart disease with heart failure; I27.20 Pulmonary hypertension, unspecified; I73.00 Raynaud's syndrome without gangrene; K22.8 Other specified diseases of esophagus; Z82.49 Family history of ischemic heart disease and other diseases of the circulatory system; Z99.81 Dependence on supplemental oxygen
CPT/HCPCS: 36415; 71046; 71275; 74230; 80048; 80053; 82040; 83605; 83735; 83880; 84443; 84484; 85025; 85379; 87040; 93005; 93306; 94640; 96361; 96365; 96375; 99285; G0378; J1650; J1885; J2405; J2543; J3370; J3480; J7620; J7626; Q0167; Q9967; J0295; J1200; J2920; J2930; J3490; J7030; J7050; J7120; J7512; J7517

== ENCOUNTER 2019-01-05 12:00 | Outpatient (CLI) | payer MEDICARE ==
[~2019-01-05 12:00] MED LIST changes: +AMOX1TAB12 PO; -FLUT16SP NAS; +FLUT16SP24 NAS; +GUAI-103 PO; +OMEP40CA6 PO
== END 2019-01-05 23:59 | disposition home or self-care (01) ==
LOC: RAD 12:00
PROVIDERS: ATTEND Internal Medicine Gastroenterology
DX: K21.0 Gastro-esophageal reflux disease with esophagitis (principal); J69.0 Pneumonitis due to inhalation of food and vomit
CPT/HCPCS: 74220

== ENCOUNTER → 2019-01-12 | Outpatient (CLI) | payer MEDICAID, MEDICARE | END | disposition home or self-care (01) | LOC: CARD 12:48 | PROVIDERS: ATTEND Internal Medicine Cardiovascular Disease | DX: I34.0 Nonrheumatic mitral (valve) insufficiency (principal); R06.02 Shortness of breath; I27.29 Other secondary pulmonary hypertension | CPT/HCPCS: 93306 ==

== ENCOUNTER 2019-07-05 13:44 | Emergency (ER) | payer MEDICAID, MEDICARE ==
[~2019-07-05] VITALS: Ht 167.6 cm; Wt 73.1 kg
[~2019-07-05 13:44] MED LIST changes: +AMOX1TAB64 PO; +GUAI200T37 PO; +LACT1TAB13 PO; +LIDO700A20 TD; +OMEP40CA42 PO; -OMEP40CA6 PO; +PANT20TA3 PO; +SIMV20TA PO; +SULF1TAB24 PO
[2019-07-05 14:33] LABS: BASOPHILS # (AUTO) 0.06 x10^3/uL (0-0.1); BASOPHILS % (AUTO) 1 % (0-1); EOSINOPHILS # (AUTO) 0.29 x10^3/uL (0-0.4); EOSINOPHILS % (AUTO) 5 % (1-7); LYMPHOCYTES # (AUTO) 1.44 x10^3/uL (1-3.4); LYMPHOCYTES % (AUTO) 24 % (22-44); MD NO; MEAN CORPUSCULAR HEMOGLOBIN 25.7 pg (27.0-34.8); MEAN CORPUSCULAR HGB CONC 31.5 g/dL (32.4-35.8); MEAN CORPUSCULAR VOLUME 81.3 fL (80-100); MEAN PLATELET VOLUME 8.8 fL (7.4-10.4); MONOCYTES # (AUTO) 0.53 x10^3/uL (0.2-0.8); MONOCYTES % (AUTO) 9 % (2-9); NEUTROPHILS # (AUTO) 3.73 x10^3/uL (1.8-6.8); NEUTROPHILS % (AUTO) 62 % (42-75); PLATELET COUNT 278 x10^3/uL (130-400); RED BLOOD COUNT 5.25 x10^6/uL (3.82-5.3); RED CELL DISTRIBUTION WIDTH 17.2 % (9.6-15.2)
[2019-07-05 14:45] LABS: ALBUMIN 3.7 g/dL (3.4-5.0); ANION GAP 6 mmol/L (5-15); CALCIUM 8.9 mg/dL (8.5-10.1); CHLORIDE 101 mmol/L (98-107)
[2019-07-05 14:49] LABS: ALANINE AMINOTRANSFERASE 21 U/L (12-78); ALKALINE PHOSPHATASE 126 U/L (45-117); BILIRUBIN,TOTAL 0.5 mg/dL (0.2-1.0); CREATININE 0.77 mg/dL (0.55-1.02); TOTAL PROTEIN 8.4 g/dL (6.4-8.2); TROPONIN I < 0.015 ng/mL (0.000-0.045)
[2019-07-05 14:59] VITALS: BP 103/71
[2019-07-05] MEDS ORDERED: OXYMETAZOLINE NASAL SPRAY 0.05%, 15ML NAS ONE (15:00)
--- NOTE | 2019-07-05 15:01 | NUR ---
FIRST CONTACT WITH PT. BASELINE HOME O2 3-3.5L NC ALL THE TIME. "I CAN'T BREATHE, I'M CONGESTED, MY BACK HURTS. MY FOOT DOCTOR SAID I HAVE AN INFECTION IN THE SURGERY SITE FROM [place]." PT DENIES ANY OTHER SX. PT C/O CHEST PRESSURE WELL. PT'S AOX4. RESPS EVEN AND UNLABORED. ALL MONITORS IN PLACE. CALL LIGHT WITHIN REACH.
[2019-07-05] MEDS ORDERED: OXYMETAZOLINE NASAL SPRAY 0.05%,30ML ONE (15:03)
--- NOTE | 2019-07-05 15:05 | NUR ---
PT MEDICATED PER EMAR. PT TOLERATED WELL.
--- NOTE | 2019-07-05 15:11 | NUR ---
PT AMB TO BR WITH STEADY GAIT.
--- NOTE | 2019-07-05 15:16 | NUR ---
Patient given discharge instructions and they have confirmed that they understand the instructions. Patient ambulatory with steady gait.
== END 2019-07-05 15:17 | disposition home or self-care (01) ==
LOC: ED 15:02
DX: J45.909 Unspecified asthma, uncomplicated (principal); J39.8 Other specified diseases of upper respiratory tract; I10 Essential (primary) hypertension; E87.6 Hypokalemia
CPT/HCPCS: 36415; 71046; 80053; 84484; 85025; 99284

== ENCOUNTER → 2019-08-23 | Outpatient (CLI) | payer MEDICARE, MEDICAID ==
[~2019-08-23] MED LIST changes: +ALBU2.5V NPPB; +DOXY100T23 PO; +MONT10TA9 PO; +MYCO250C PO; +OMEP-110 PO
== END | disposition home or self-care (01) ==
LOC: RAD 17:08
PROVIDERS: ATTEND Family Medicine
DX: I51.7 Cardiomegaly (principal)
CPT/HCPCS: 71046

== ENCOUNTER → 2019-09-19 | Outpatient (CLI) | payer MEDICARE ==
[~2019-09-19] MED LIST changes: +MONT10TA11 PO; -MONT10TA9 PO
== END | disposition home or self-care (01) ==
LOC: RAD 14:38
PROVIDERS: ATTEND Internal Medicine Gastroenterology
DX: K21.0 Gastro-esophageal reflux disease with esophagitis (principal); R13.11 Dysphagia, oral phase; R13.14 Dysphagia, pharyngoesophageal phase; K22.4 Dyskinesia of esophagus; M34.1 CR(E)ST syndrome; J69.0 Pneumonitis due to inhalation of food and vomit
CPT/HCPCS: 74220

== ENCOUNTER → 2019-09-26 | Outpatient (CLI) | payer MEDICAID, MEDICARE | END | disposition home or self-care (01) | LOC: RAD 08:25 → EDSTATUS 09:00 | PROVIDERS: ATTEND Registered Nurse | DX: I08.8 Other rheumatic multiple valve diseases (principal); J90 Pleural effusion, not elsewhere classified; I31.3 Pericardial effusion (noninflammatory); K22.8 Other specified diseases of esophagus; R91.8 Other nonspecific abnormal finding of lung field | CPT/HCPCS: 71250; 93306 ==

== ENCOUNTER → 2019-11-18 | Outpatient (CLI) | payer MEDICARE, MEDICAID ==
[2019-11-18 15:37] LABS: BASOPHILS # (AUTO) 0.05 x10^3/uL (0-0.1); BASOPHILS % (AUTO) 1 % (0-1); EOSINOPHILS # (AUTO) 0.18 x10^3/uL (0-0.4); EOSINOPHILS % (AUTO) 3 % (1-7); LYMPHOCYTES # (AUTO) 1.75 x10^3/uL (1-3.4); LYMPHOCYTES % (AUTO) 28 % (22-44); MD NO; MEAN CORPUSCULAR HEMOGLOBIN 26.5 pg (27.0-34.8); MEAN CORPUSCULAR HGB CONC 32.5 g/dL (32.4-35.8); MEAN CORPUSCULAR VOLUME 81.7 fL (80-100); MEAN PLATELET VOLUME 9.4 fL (7.4-10.4); MONOCYTES # (AUTO) 0.48 x10^3/uL (0.2-0.8); MONOCYTES % (AUTO) 8 % (2-9); NEUTROPHILS # (AUTO) 3.74 x10^3/uL (1.8-6.8); NEUTROPHILS % (AUTO) 60 % (42-75); PLATELET COUNT 272 x10^3/uL (130-400); RED BLOOD COUNT 4.68 x10^6/uL (3.82-5.3); RED CELL DISTRIBUTION WIDTH 15.4 % (9.6-15.2)
[2019-11-18 15:47] LABS: ALANINE AMINOTRANSFERASE 20 U/L (12-78); ALBUMIN 3.9 g/dL (3.4-5.0); ANION GAP 7 mmol/L (5-15); CALCIUM 8.9 mg/dL (8.5-10.1); CHLORIDE 97 mmol/L (98-107); CREATININE 0.79 mg/dL (0.55-1.02)
[2019-11-18 16:13] LABS: ALKALINE PHOSPHATASE 126 U/L (45-117); BILIRUBIN,TOTAL 0.4 mg/dL (0.2-1.0); HCT (SEDRATE) 34.8 % (34.6-47.8); TOTAL PROTEIN 8.1 g/dL (6.4-8.2)
== END | disposition home or self-care (01) ==
LOC: CFH 14:09
PROVIDERS: ATTEND Family Medicine
DX: G60.3 Idiopathic progressive neuropathy (principal); R05 Cough; Z79.899 Other long term (current) drug therapy
CPT/HCPCS: 36415; 80053; 82607; 84436; 84443; 85025; 85651

== ENCOUNTER 2020-07-13 18:35 | Emergency (ER) | payer MEDICARE, MEDICAID ==
[~2020-07-13] VITALS: Ht 167.6 cm; Wt 67.0 kg
[~2020-07-13 18:35] MED LIST changes: +ARIP5TAB13 PO; -HYDR-3059 PO; +HYDR-3590 PO; +METO10TA82 PO; -MONT10TA11 PO; +MONT10TA96 PO; -PANT20TA3 PO; +PANT20TA4 PO; -PANT40TA5 PO; +PANT40TA6 PO; +SUCR1ORA5 PO
[2020-07-13 18:39] VITALS: BP 136/85
[2020-07-13 19:33] LABS: BASOPHILS % (AUTO) 1 % (0-1); EOSINOPHILS % (AUTO) 2 % (1-7); LYMPHOCYTES % (AUTO) 15 % (22-44); MEAN CORPUSCULAR HEMOGLOBIN 27.7 pg (27.0-34.8); MEAN PLATELET VOLUME 8.7 fL (7.4-10.4); MONOCYTES % (AUTO) 10 % (2-9); NEUTROPHILS % (AUTO) 73 % (42-75); PLATELET COUNT 264 x10^3/uL (130-400); RED BLOOD COUNT 4.62 x10^6/uL (3.82-5.3)
[2020-07-13 19:36] LABS: ALBUMIN 3.6 g/dL (3.4-5.0); ANION GAP 4 mmol/L (5-15); CALCIUM 9.6 mg/dL (8.5-10.1); CHLORIDE 104 mmol/L (98-107); CREATININE 0.83 mg/dL (0.55-1.02)
[2020-07-13 19:48] LABS: MD NO
--- NOTE | 2020-07-13 19:55 | NUR ---
Pt to rm from lobby
[2020-07-13] MEDS ORDERED: CEFTRIAXONE 1,000 MG IM ONE (21:00)
[2020-07-13] MEDS ORDERED: CEFTRIAXONE 1,000 MG ONE (21:09)
== END 2020-07-13 21:53 | disposition home or self-care (01) ==
LOC: ED 19:05
DX: J18.0 Bronchopneumonia, unspecified organism (principal); I10 Essential (primary) hypertension; J44.9 Chronic obstructive pulmonary disease, unspecified; R07.9 Chest pain, unspecified
CPT/HCPCS: 36415; 71045; 80048; 82040; 85025; 96372; 99284; J0696; J7512

== ENCOUNTER 2020-10-23 13:55 | Emergency (ER) | payer MEDICARE, MEDICAID ==
[~2020-10-23] VITALS: Ht 167.6 cm; Wt 64.2 kg
[~2020-10-23 13:55] MED LIST changes: -FOLI-17 PO; +FOLI1TAB32 PO; +MONT10TA17 PO; -MONT10TA96 PO; -OXYC5TAB3 PO; +OXYC5TAB98 PO
[2020-10-23 15:30] LABS: BASOPHILS % (AUTO) 1 % (0-1); EOSINOPHILS % (AUTO) 2 % (1-7); LYMPHOCYTES % (AUTO) 18 % (22-44); MEAN CORPUSCULAR HEMOGLOBIN 28.5 pg (27.0-34.8); MEAN CORPUSCULAR HGB CONC 33.9 g/dL (32.4-35.8); MEAN PLATELET VOLUME 9.2 fL (7.4-10.4); MONOCYTES % (AUTO) 7 % (2-9); NEUTROPHILS % (AUTO) 72 % (42-75); PLATELET COUNT 252 x10^3/uL (130-400); RED BLOOD COUNT 4.78 x10^6/uL (3.82-5.3); RED CELL DISTRIBUTION WIDTH 15.6 % (9.6-15.2)
[2020-10-23 15:41] LABS: ALBUMIN 4.1 g/dL (3.4-5.0); ANION GAP 8 mmol/L (5-15); CALCIUM 9.1 mg/dL (8.5-10.1); CHLORIDE 100 mmol/L (98-107)
[2020-10-23 15:43] LABS: ALANINE AMINOTRANSFERASE 19 U/L (12-78); ALKALINE PHOSPHATASE 109 U/L (45-117); BILIRUBIN,TOTAL 0.3 mg/dL (0.2-1.0); CREATININE 0.98 mg/dL (0.55-1.02); TOTAL PROTEIN 8.1 g/dL (6.4-8.2)
[2020-10-23 16:03] LABS: MD NO
[2020-10-23] MEDS ORDERED: OMNIPAQUE 350 MG/ML, 150 ML BOTTLE ONE (16:04)
[2020-10-23 16:26] VITALS: BP 124/80
== END 2020-10-23 17:16 | disposition home or self-care (01) ==
LOC: ED 17:00
DX: L03.012 Cellulitis of left finger (principal); E87.6 Hypokalemia; R11.10 Vomiting, unspecified; R13.10 Dysphagia, unspecified; R06.02 Shortness of breath; M79.89 Other specified soft tissue disorders; I10 Essential (primary) hypertension; J44.9 Chronic obstructive pulmonary disease, unspecified
CPT/HCPCS: 36415; 71045; 74220; 80053; 84145; 85025; 93005; 99285; Q9967

== ENCOUNTER 2021-04-04 22:26 | Emergency (ER) | payer MEDICARE, MEDICAID ==
[~2021-04-04] VITALS: Ht 167.6 cm; Wt 68.0 kg
[~2021-04-04 22:26] MED LIST changes: -OMEP40CA42 PO; +OMEP40CA8 PO; +POTA-143 PO; -POTA20TA6 PO; +SULF-23 PO; -SULF1TAB24 PO
[2021-04-04] MEDS ORDERED: ACETAMINOPHEN 500 MG TABLET ONE (22:53)
[2021-04-04] MEDS ORDERED: GABAPENTIN 300 MG CAPSULE ONE (22:53)
[2021-04-04] MEDS ORDERED: GABAPENTIN 300 MG CAPSULE PO ONE (23:00)
[2021-04-04] MEDS ORDERED: ACETAMINOPHEN 500 MG TABLET PO ONE (23:00)
--- NOTE | 2021-04-04 23:00 | NUR ---
BIBA FOR POSSIBLE ALLERGIC REACTION TO DOXYCYCLINE. PT HAS HIVES AND UTICARIA TO UPPER CHEST BUT MAINLY ON FACE. PT RECEIVED 5 MG IV BENADRYL FROM [facility] AND EMS REPORTS IMPROVEMENT IN SKIN. PT ABLE TO SPEAK IN FULL SENTENCES, NO FACIAL SWELLING NOTED. PT STATES SHE HAS BEEN TAKING ABX FOR 1 WEEK. RECENTLY SEEN HERE FOR PNA. ON 4 L NC BASELINE FOR O2
--- NOTE | 2021-04-04 23:18 | NUR ---
COVID SWAB COLLECTED AND WALKED TO LAB
[2021-04-04 23:47] LABS: ALANINE AMINOTRANSFERASE 16 U/L (12-78); ALBUMIN 3.3 g/dL (3.4-5.0); ANION GAP 10 mmol/L (5-15); CALCIUM 8.9 mg/dL (8.5-10.1); CHLORIDE 104 mmol/L (98-107); CREATININE 0.63 mg/dL (0.55-1.02)
[2021-04-04 23:51] LABS: ALKALINE PHOSPHATASE 89 U/L (45-117); BILIRUBIN,TOTAL 0.3 mg/dL (0.2-1.0); TOTAL PROTEIN 7.6 g/dL (6.4-8.2); TROPONIN I < 0.015 ng/mL (0.000-0.045)
[2021-04-04 23:52] LABS: BASOPHILS % (AUTO) 1 % (0-1); EOSINOPHILS % (AUTO) 2 % (1-7); LYMPHOCYTES % (AUTO) 15 % (22-44); MEAN CORPUSCULAR HEMOGLOBIN 27.6 pg (27.0-34.8); MEAN CORPUSCULAR HGB CONC 33.2 g/dL (32.4-35.8); MEAN PLATELET VOLUME 8.8 fL (7.4-10.4); MONOCYTES % (AUTO) 8 % (2-9); NEUTROPHILS % (AUTO) 74 % (42-75); PLATELET COUNT 266 x10^3/uL (130-400); RED BLOOD COUNT 4.58 x10^6/uL (3.82-5.3); RED CELL DISTRIBUTION WIDTH 16.3 % (9.6-15.2)
[2021-04-05] MEDS ORDERED: POTASSIUM CHLORIDE 20 MEQ TAB.ER.PRT PO ONE ×2 (00:30)
[2021-04-05] MEDS ORDERED: GABAPENTIN 300 MG CAPSULE ONE (00:57)
[2021-04-05] MEDS ORDERED: POTASSIUM CHLORIDE 20 MEQ TAB.ER.PRT ONE (00:57)
[2021-04-05] MEDS ORDERED: GABAPENTIN 300 MG CAPSULE PO ONE (01:00)
[2021-04-05 02:15] VITALS: BP 122/65
--- NOTE | 2021-04-05 02:16 | NUR ---
Patient given discharge instructions and they have confirmed that they understand the instructions. Patient ambulatory with steady gait. NAD, all questions answered appropriately, denies additional needs at this time. No personal belongings left in room after discharge.
--- NOTE | 2021-04-05 02:17 | NUR ---
PT HAS OWN OXYGEN TANK FOR DC HOME.
== END 2021-04-05 02:18 | disposition home or self-care (01) ==
LOC: ED 22:45
DX: R21 Rash and other nonspecific skin eruption (principal); R05 Cough; R11.2 Nausea with vomiting, unspecified; I10 Essential (primary) hypertension; J44.9 Chronic obstructive pulmonary disease, unspecified; Z20.822 Contact with and (suspected) exposure to COVID-19
CPT/HCPCS: 36415; 71045; 80053; 83605; 83880; 84484; 85025; 86592; 87806; 93005; 99285; U0003; U0005; G0475

== ENCOUNTER 2021-04-15 12:13 | Outpatient (CLI) | payer MEDICARE, MEDICAID | END 2021-04-15 23:59 | disposition home or self-care (01) | LOC: CFH 12:13 → RAD 23:59 | PROVIDERS: ATTEND Family Medicine | DX: J15.9 Unspecified bacterial pneumonia (principal) | CPT/HCPCS: 71046 ==